=== PATIENT | female | born 1985 | race Caucasian/White ===

== ENCOUNTER 2023-12-13 10:04 | Outpatient (REF) | payer MEDICAID, SELFPAY ==
--- NOTE | ~2023-12-13 | XR_ITS ---
EXAMINATION: XR LUMBOSACRAL SPINE WITH OBLIQUES CLINICAL INFORMATION: Lumbar spondylosis. COMPARISON: None available. TECHNIQUE: AP, both oblique, and lateral views of the lumbar spine. Lateral view of the lumbosacral junction. FINDINGS: Mild to moderate disc space narrowing at L4-L5. Disc degenerative change involving the lower thoracic spine. The vertebral bodies and posterior elements appear unremarkable. Vertebral alignment appears unremarkable.. The paraspinal soft tissues appear unremarkable. XR/XR lumbar spine 4V min IMPRESSION: Disc degenerative change.
[2023-12-13 13:59] LABS: Thyroid Stimulating Hormone 41.48 uIU/mL (0.32-4.0)
== END 2023-12-13 10:05 | disposition home or self-care (01) ==
LOC: HO.XRAY 10:04
PROVIDERS: Visit Provider Registered Nurse Emergency
DX: M47.816 Spondylosis without myelopathy or radiculopathy, lumbar region (principal); E03.9 Hypothyroidism, unspecified
CPT/HCPCS: 36415; 72110; 84443; 99212

== ENCOUNTER 2023-12-13 10:04 | Outpatient (AMB) | payer MEDICAID, SELFPAY ==
[2023-12-13 10:31] VITALS: BP 140/86; PULSE 73; RESP 18; O2SAT 96; BMI 44.5
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
== END 2023-12-13 11:09 | disposition home or self-care (01) ==
PROVIDERS: Visit Provider Registered Nurse Emergency
DX: M47.816 Spondylosis without myelopathy or radiculopathy, lumbar region (principal)
CPT/HCPCS: 99204

== ENCOUNTER 2024-01-21 10:03 | Outpatient (RCR) | payer MEDICAID, SELFPAY | END 2024-02-26 15:51 | disposition home or self-care (01) | LOC: HO.WCC 10:03 | PROVIDERS: Visit Provider Physician Assistant | DX: Z09 Encounter for follow-up examination after completed treatment for conditions other than malignant neoplasm (principal) | CPT/HCPCS: 99212 ==

== ENCOUNTER 2024-02-05 09:10 | Outpatient (AMB) | payer MEDICAID, SELFPAY ==
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
[2024-02-05 09:30] VITALS: BP 135/90; PULSE 77; BMI 45.2
== END 2024-02-05 10:08 | disposition home or self-care (01) ==
PROVIDERS: Referring Provider Surgery; Visit Provider Surgery
DX: K43.9 Ventral hernia without obstruction or gangrene (principal); E66.01 Morbid (severe) obesity due to excess calories
CPT/HCPCS: 99204

== ENCOUNTER → 2024-02-05 09:10 | Outpatient (BNVA) | payer MEDICAID, SELFPAY | PROVIDERS: Referring Provider Surgery; Visit Provider Surgery | DX: K43.9 Ventral hernia without obstruction or gangrene (principal); E66.01 Morbid (severe) obesity due to excess calories; Z68.42 Body mass index [BMI] 45.0-49.9, adult | CPT/HCPCS: 99202 ==

== ENCOUNTER 2024-02-18 06:09 | Outpatient (REF) | payer MEDICAID, SELFPAY ==
--- NOTE | ~2024-02-18 | FL_ITS ---
EXAMINATION: XR FLUOROSCOPY WITH IMAGES CLINICAL INFORMATION: Spondylosis without myelopathy. COMPARISON: None available. TECHNIQUE: Fluoroscopy Supervised By: Dr. Sylvain Lin. Fluoroscopy Time: 0.5 minutes. Cumulative Dose: 10.2 mGy. DAP: 0.178 Gycm2. Images: 8. FINDINGS: Intraoperative fluoroscopy and spot films were performed during a procedure in the OR. [place] are seen at 3 consecutive levels in the lumbar spine on the left likely L4-S1 with a single needle placed at S1 on the right. Contrast media is seen around the needle tips likely epidural. Please correlate with Dr. Sylvain Lin's report for complete details. FL/FL guidance in treatment room IMPRESSION: Intraoperative fluoroscopy and spot films were obtained. Please see Dr. Sylvain Lin's report for complete details.
== END 2024-02-18 06:10 | disposition home or self-care (01) ==
LOC: HO.LAB 06:09
PROVIDERS: PCP Family Medicine; Visit Provider Anesthesiology
DX: M47.816 Spondylosis without myelopathy or radiculopathy, lumbar region (principal); E03.9 Hypothyroidism, unspecified
CPT/HCPCS: 36415; 64493; 64494; 84443; J2795; Q9967

== ENCOUNTER 2024-02-18 09:30 | Outpatient (AMB) | payer MEDICAID, SELFPAY ==
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
[2024-02-18 10:03] VITALS: BP 128/72; PULSE 83; RESP 20; O2SAT 98; BMI 45.2
[2024-02-18 10:07] VITALS: BP 130/70; PULSE 96; RESP 18; O2SAT 96
== END 2024-02-18 10:43 | disposition home or self-care (01) ==
LOC: HO.PMCPRC 09:30
PROVIDERS: PCP Family Medicine; Referring Provider Family Medicine; Visit Provider Anesthesiology
DX: M47.816 Spondylosis without myelopathy or radiculopathy, lumbar region (principal)
CPT/HCPCS: 64493; 64494

== ENCOUNTER 2024-02-21 08:56 | Outpatient (REF) | payer MEDICAID, SELFPAY ==
--- NOTE | ~2024-02-21 | CT_ITS ---
EXAMINATION: CT ABDOMEN AND PELVIS WITHOUT CONTRAST CLINICAL INFORMATION: Ventral hernia without obstruction or gangrene. COMPARISON: None available. TECHNIQUE: Multidetector volumetric imaging was performed from the superior aspect of the liver through the pubic symphysis. Sagittal and coronal reformatted images were obtained on the technologist's workstation. This CT examination was performed using dose optimization techniques as appropriate, variously including the following: *Automated exposure control *Adjustment of mA and/or kV according to patient size (this includes techniques or standardized protocols for targeted exams where dose is matched to indication/reason for exam; i.e. extremities or head) *Use of iterative reconstruction technique DLP: 820 mGy-cm. FINDINGS: LUNG BASES: The visualized lung bases are unremarkable. No pleural or pericardial effusion. LIVER, GALLBLADDER, AND BILIARY TREE: The liver is normal in size, shape, and attenuation. No focal hepatic lesion or biliary ductal dilatation is present. The gallbladder is unremarkable with no evidence of radiopaque gallstones, gallbladder wall thickening, or obvious pericholecystic inflammatory changes. PANCREAS: Unremarkable. No abnormal mass or peripancreatic inflammatory change. SPLEEN: Unremarkable. ADRENAL GLANDS: Unremarkable. KIDNEYS AND URETERS: The kidneys are normal in size, shape, and attenuation. No hydronephrosis or hydroureter. There is a 2 mm nonobstructing calculus seen in the lower pole of the right kidney. No perinephric stranding. BLADDER: Unremarkable. GASTROINTESTINAL TRACT: No free air or free fluid. No dilated loops of large or small bowel. There is a small hiatal hernia seen. No pericolonic inflammatory change. The appendix appears unremarkable. There is a fat halo sign seen involving the cecum and terminal ileum; however, this is likely related to obesity rather than chronic Crohn's disease. ABDOMINAL WALL: There is a supraumbilical midline hernia present with defect of 2 cm in width. This is seen to contain fat with no abnormal fluid collection. LYMPH NODES: No lymphadenopathy appreciated. VASCULAR: Unremarkable. PELVIC VISCERA: Unremarkable. OSSEOUS STRUCTURES: No suspicious destructive bony lesions. There is S1 spina bifida occulta. CT/CT abdomen pelvis wo IV con IMPRESSION: Supraumbilical fat-containing anterior midline abdominal wall hernia. Right nephrolithiasis without evidence of obstructive uropathy. Fat halo sign seen within the cecum and terminal ileum, most likely related to obesity if patient has not had history of Crohn's disease. Fleischner guidelines were followed.
== END 2024-02-21 08:57 | disposition home or self-care (01) ==
LOC: HO.CT 08:56
PROVIDERS: PCP Family Medicine; Visit Provider Surgery
DX: K43.9 Ventral hernia without obstruction or gangrene (principal)
CPT/HCPCS: 74176

== ENCOUNTER 2024-03-17 09:44 | Day surgery (SDC) | payer MEDICAID, SELFPAY ==
[2024-03-17] VITALS (10 sets, daily range): BP systolic 97–128; BP diastolic 53–87; PULSE 77–95; RESP 16–18; TEMP 36.6; O2SAT 95–97; BMI 45.0
--- NOTE | 2024-03-17 10:56 | MHC.SHP ---
Pre-Procedural Eval Section A - 24 Hr Update-Section A only Date of Service: 03/17/24 Section B - Complete if H&P > 30 days Chief Complaint: Ventral hernia without obstruction or gangrene Details of Present Illness: Has hernia on the epigastric area with discomfort; CT confirms small hernia Relevant Family History (Specify if Yes): No Relevant Social History: None Present Medications: see Short Stay Collaborative assessment Medical History: Significant History (Morbidly obese, chronic back pain) Allergies: Allergies Allergy/AdvReac Type Severity Reaction Status Date / Time Seasonal Allergies Allergy Severe Unknown Verified 03/17/24 10:26 Review of Systems Sugical H&P ROS: Negative: Constitution, Cardiovascular, Respiratory, Neurological, Psychiatric, Hem-Onc, Allergic/Immunologic, Gastrointestinal, Genitourinary, Musculoskeletal, Integumentary, Endocrine and Eyes/Ears/Nose/Throat Exam Surgical H&P Exam: Normal: HEENT, Normal: Heart, Normal: Lungs, Normal: Extremities, Normal: Skin and Normal: Neurological and Significant Findings: Abdomen (Vague protuberant area in the epigastric area with Valsalva) Plan Diagnosis/Plan: Unchanged I have reviewed the history and physical and performed a pertinent physical examination on my patient. No changes have occurred unless specified. Time Spent With Patient Time: Total time managing care of this patient today ____ minutes.
[2024-03-17] MEDS: Lactated Ringers 1,000 ML 100 ML IVCONT (11:12)
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
--- NOTE | 2024-03-17 12:58 | P.OP_ITS ---
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 This was seen small defect on the fascia on CT scan. She understood the technique of repair with mesh and she was aware of the risks, benefits, and alternatives She was brought to the operating room and placed supine under general anesthesia via endotracheal tube. The abdomen was prepped and draped in usual sterile fashion. A surgical time-out was done. The patient received cefazolin 2 g IV preoperatively I infiltrated my planned line of incision. I made the incision on the skin overlying this palpable hernia using blade 15. And this was carried down through the full-thickness of the skin and thick subcutaneous fat until was able to visualize the hernia. The hernia consisted of large amounts of omentum. I did sharp dissection to separate the rest of the hernia contents from the thick subcutaneous layer down to the fascia. I did sharp dissection adhesions from the fascial edge to the hernia until was able to clearly define this. There was a large amount of herniated omentum which could not be reduced through the small defect. I therefore do partial appendectomy by serially ligating the omentum with Polysorb 2-0 ties and transecting this above the ties. We were then able to reduce the hernia completely. The fascial defect measured about 1.5 cm. I chose a small-sized Ventralex mesh. This was positioned under the fascia and flattened. I secured the mesh with Prolene 2 sutures to the fascial edge using both straps. I then closed the fascial defect with a [id number] Maxon 1 stitch The subcutaneous layer was reapposed with Polysorb 3-0 sutures. Skin closure was achieved with Polysorb 4-0 subcuticular running stitch The area was infiltrated with Marcaine 0.5% for postop analgesia. Dressings were applied. The procedure was completed The patient tolerated procedure well. There were no immediate complications. Initial and final counts of sponges and instruments were correct. Estimated blood loss was about 50 cc The patient was extubated without difficulty and transferred to the recovery room with stable vital signs
[2024-03-17] MEDS: Albuterol Sulfate (0.083%) 2.5 MG/3 ML VIAL.NEB INHALE (13:16)
[2024-03-17] MEDS: oxyCODONE HCl Immed Release 5 MG TABLET PO (13:22)
[2024-03-17] MEDS: fentaNYL citrate/PF 100 MCG/2 ML VIAL 50 MCG IVPUSH (13:38)
== END 2024-03-17 15:04 | disposition home or self-care (01) ==
PROVIDERS: PCP Family Medicine; Visit Provider Surgery
PROC: (CPT 49592; principal; 2024-03-17 11:30)
DX: K43.6 Other and unspecified ventral hernia with obstruction, without gangrene (principal); K66.0 Peritoneal adhesions (postprocedural) (postinfection); N83.209 Unspecified ovarian cyst, unspecified side; N75.0 Cyst of Bartholin's gland; G93.2 Benign intracranial hypertension; J45.909 Unspecified asthma, uncomplicated; E03.9 Hypothyroidism, unspecified; E66.01 Morbid (severe) obesity due to excess calories; Z68.42 Body mass index [BMI] 45.0-49.9, adult; M79.7 Fibromyalgia; M47.816 Spondylosis without myelopathy or radiculopathy, lumbar region; F41.0 Panic disorder [episodic paroxysmal anxiety]; F43.0 Acute stress reaction; Z79.899 Other long term (current) drug therapy; Z59.00 Homelessness unspecified; Z91.419 Personal history of unspecified adult abuse; F17.200 Nicotine dependence, unspecified, uncomplicated
CPT/HCPCS: 49592; 88304; C1781; J0665; J0690; J1100; J1885; J2250; J2405; J2704; J3010

== ENCOUNTER → 2024-03-17 09:44 | Outpatient (BNV) | payer MEDICAID, SELFPAY | PROVIDERS: PCP Family Medicine; Visit Provider Surgery | DX: K43.6 Other and unspecified ventral hernia with obstruction, without gangrene (principal) | CPT/HCPCS: 49592 ==

== ENCOUNTER 2024-03-30 10:59 | Outpatient (AMB) | payer MEDICAID, SELFPAY ==
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
== END 2024-03-30 11:38 | disposition home or self-care (01) ==
PROVIDERS: Visit Provider Surgery
DX: K43.9 Ventral hernia without obstruction or gangrene (principal)
CPT/HCPCS: 99212

== ENCOUNTER → 2024-03-30 10:59 | Outpatient (BNVA) | payer MEDICAID, SELFPAY | PROVIDERS: Visit Provider Surgery | DX: K43.9 Ventral hernia without obstruction or gangrene (principal) | CPT/HCPCS: 99212 ==

== ENCOUNTER 2024-04-29 16:17 | Outpatient (AMB) | payer MEDICAID, SELFPAY ==
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
[2024-04-29 14:15] VITALS: BMI 42.6
== END 2024-04-29 16:45 | disposition home or self-care (01) ==
LOC: HO.HBS 16:17
PROVIDERS: PCP Family Medicine; Visit Provider Physician Assistant Surgical
DX: E66.01 Morbid (severe) obesity due to excess calories (principal); Z68.41 Body mass index [BMI] 40.0-44.9, adult
CPT/HCPCS: 99205

== ENCOUNTER → 2024-04-29 16:17 | Outpatient (BNVA) | payer MEDICAID, SELFPAY | PROVIDERS: PCP Family Medicine; Visit Provider Physician Assistant Surgical | DX: E66.01 Morbid (severe) obesity due to excess calories (principal); D64.9 Anemia, unspecified; E03.9 Hypothyroidism, unspecified; Z71.3 Dietary counseling and surveillance; Z68.41 Body mass index [BMI] 40.0-44.9, adult | CPT/HCPCS: 99205 ==

== ENCOUNTER 2024-05-07 08:45 | Outpatient (REF) | payer MEDICAID, SELFPAY ==
--- NOTE | ~2024-05-07 | US_ITS ---
EXAMINATION: US COMPLETE ABDOMEN WITH LIVER ELASTOGRAPHY CLINICAL INFORMATION: Morbid obesity. COMPARISON: CT abdomen and pelvis 02/21/2024 TECHNIQUE: Real-time imaging of the abdominal viscera. Noninvasive ultrasound liver fibrosis assessment is performed using Alexa ElastPQ point quantification shear wave elastography (pSWE) with a C5-2 MHz transducer. Multiple elastography samples are obtained. FINDINGS: PANCREAS: Normal. The visualized pancreatic head and body are normal in appearance. The remainder of the pancreas is obscured from visualization by the overlying bowel gas. ABDOMINAL AORTA: The proximal, middle, and distal aortic segments are normal in caliber. INFERIOR VENA CAVA: Visualized portions are normal. LIVER: The liver is enlarged with increased echogenicity consistent with hepatic steatosis. At the time of the CT scan, the liver was 20 cm in greatest length and attenuation was normal. No focal lesion or intrahepatic biliary duct dilatation. The right lobe measures 18.8 cm in length. The left lobe measures 13.2 cm in length. Portal flow is towards the liver (hepatopetal). Shear wave liver elastography median stiffness is 1.06 m/s (reference: normal median stiffness is 1.3 m/s or less). IQR/median stiffness to assess sampling precision is 0.08 (reference: good quality data set is IQR/median stiffness of 0.15 or less). GALLBLADDER: Normal. The gallbladder is physiologically distended without evidence of stones, sludge, polyps, wall thickening or pericholecystic fluid. COMMON BILE DUCT: Normal in caliber measuring 0.3 cm in diameter. RIGHT KIDNEY: Normal. No hydronephrosis. No renal calculi or focal parenchymal lesions. The kidney measures 10.9 cm in maximum dimension. LEFT KIDNEY: Normal. No hydronephrosis. No renal calculi or focal parenchymal lesions. The kidney measures 11.2 cm in maximum dimension. SPLEEN: Normal. The spleen measures 11.1 cm in maximum dimension. FREE FLUID: None. US/US abdomen comp w elastography IMPRESSION: 1. Enlarged fatty liver. 2. Liver elastography: Measurements are consistent with a high probability of normal liver stiffness. REFERENCE: Society of Radiologists in Ultrasound Liver Stiffness Thresholds (2020): LIVER STIFFNESS THRESHOLDS: *Liver Stiffness equal or less than 1.3 m/s: High probability of being normal. *Liver Stiffness less than 1.7 m/s: In the absence of other known clinical signs, rules out compensated advanced chronic liver disease. *Liver Stiffness 1.7-2.1 m/s: Suggestive of compensated advanced chronic liver disease but need further test for confirmation. *Liver Stiffness over 2.1 m/s: Rules in compensated advanced chronic liver disease. *Liver Stiffness over 2.4 m/s: Suggestive of clinically significant portal hypertension. QUALITY OF DATA SET: *IQR/Median value equal or less than 0.15 implies a quality data set. *IQR/Median value over 0.15 implies a poor quality data set. SIGNIFICANT CHANGE FROM PRIOR EXAM: Significant change if liver stiffness measurement is 10% or greater from prior exam. OTHER CONSIDERATIONS: The stage of liver fibrosis may be overestimated in the setting of acute hepatitis, liver inflammation, elevated liver function tests, hepatic vascular congestion, obstructive cholestasis, non-fasting state, and infiltrative diseases such as amyloidosis and lymphoma. In some patients with NAFLD, the liver stiffness thresholds for compensated advanced chronic liver disease may be lower. In causes other than viral hepatitis and NAFLD, liver stiffness thresholds are not well established. Electronically signed by: Erick Alvarado MD 05/11/2024 09:55 PM EDT
--- NOTE | ~2024-05-07 | XR_ITS ---
EXAMINATION: XR CHEST CLINICAL INFORMATION: Morbid severe obesity due to excess calories COMPARISON: None available. TECHNIQUE: 2 views of the chest were obtained. FINDINGS: Mild anterior loss of height of the lower thoracic vertebral body on the etiology. Mild degenerative changes in the lower thoracic spine. There is no gross pneumothorax. Heart size is normal. No pleural effusion. No focal consolidation. XR/XR chest 2V IMPRESSION: 1. No evidence of pneumonia. 2. Mild anterior loss of height of the lower thoracic vertebral body on the etiology. Electronically signed by: Hailey Jarrell MD 05/27/2024 09:46 AM EDT
[2024-05-07 09:09] LABS: MANUAL DIFF FLAG NO
--- NOTE | 2024-05-07 10:00 | ECG_ITS ---
Test Reason : MORBID OBESITY Blood Pressure : / mmHG Vent. Rate : 082 BPM Atrial Rate : 082 BPM P-R Int : 144 ms QRS Dur : 082 ms QT Int : 398 ms P-R-T Axes : 055 -24 -16 degrees QTc Int : 464 ms Normal sinus rhythm Nonspecific ST and T wave abnormality Abnormal ECG No previous ECGs available Referred By: Raheel Al Electronically Signed By:JUAN CORRAL
[2024-05-07 10:10] LABS: Basophils Absolute Auto 0.1 X10*3/uL (0.0-0.2); Basophils Percent Auto 0.9 % (0-2); Eosinophils Absolute Auto 0.2 X10*3/uL (0.0-0.4); Eosinophils Percent Auto 2.6 % (0-4); Hematocrit 37.4 % (37.0-47.0); Hemoglobin 12.3 g/dl (12.0-16.0); Imm Gran Abs Auto 0.03 X10*3/uL (0.00-0.03); Imm Gran Pct Auto 0.4 % (0.0-0.4); Lymphocytes Absolute Auto 2.1 X10*3/uL (1.2-4.9); Lymphocytes Percent Auto 26.8 % (20-40); Mean Corpuscular HGB Conc 32.9 g/dl (31.0-35.0); Mean Corpuscular Volume 88.2 fL (80.0-98.0); Mean Platelet Volume 9.9 fL (9.4-12.3); Monocytes Absolute Auto 0.5 X10*3/uL (0.1-1.2); NRBC Pct Auto 0.4 /100WBC (0.0-0.2); Neutrophils Absolute Auto 4.8 x10*3/uL (2.0-8.3); Neutrophils Percent Auto 62.3 % (45-73); Platelet Count 352 X10*3/uL (160-400); Red Blood Count 4.24 X10*6/uL (4.20-5.50); Red Cell Distribution Width 12.5 % (11.0-16.0); White Blood Count 7.7 X10*3/uL (4.8-10.8)
[2024-05-07 10:51] LABS: Estimated Average Glucose 97 mg/dL
[2024-05-07 10:58] LABS: Alanine Aminotransferase 16 U/L (0-31); Albumin Level 4.2 g/dL (3.5-5.0); Alkaline Phosphatase 89 U/L (39-117); Anion Gap 11 (12-20); Aspartate Amino Transferase 16 U/L (5-31); Bilirubin Total 0.5 mg/dL (0.0-1.0); Blood Urea Nitrogen 13 mg/dL (9-16); C Reactive Protein 0.77 mg/dL (< or = 0.50); Calcium 9.4 mg/dL (8.4-10.2); Carbon Dioxide 27 mmol/L (22-29); Chloride 105 mmol/L (96-108); Cholesterol 256 mg/dL (<200); Estimated Glomerular Filt Rate > 60; Glucose Random 94 mg/dL (60-115); HDL Cholesterol 44 mg/dL (>40); Iron 59 mcg/dL (30-160); LDL Cholesterol Calculated 174 mg/dL (<100); Percent Iron Saturation 17 % (15-50); Potassium 4.3 mmol/L (3.3-5.1); Sodium 139 mmol/L (135-145); Total Iron Binding Capacity 354 mcg/dL (228-428); Total Protein 7.1 g/dL (6.5-8.0); Triglycerides 190 mg/dL (<150); Unsaturated Iron Binding 295 ug/dL
[2024-05-07 11:13] LABS: Ferritin 9 ng/mL (10-122); TSH reflex Free T4 44.99 uIU/mL (0.32-4.0); Vitamin D 25-OH Total 26.2 ng/mL (>30)
[2024-05-07 11:16] LABS: Folate 7.6 ng/mL (> or = 4.0); Vitamin B12 351 pg/mL (200-900)
[2024-05-07 12:09] LABS: Free T4 (Free Thyroxine) 0.52 ng/dL (0.71-1.85); Insulin 12 uU/mL (2-29)
[2024-05-11 09:33] LABS: Zinc 55 mcg/dL (60-130)
[2024-05-12 16:23] LABS: Vitamin B1 8 nmol/L (8-30)
[2024-05-13 02:43] LABS: Vitamin A 38 mcg/dL (38-98)
== END 2024-05-07 08:46 | disposition home or self-care (01) ==
LOC: HO.US 08:45
PROVIDERS: PCP Family Medicine; Visit Provider Physician Assistant Surgical
DX: E66.01 Morbid (severe) obesity due to excess calories (principal); E03.9 Hypothyroidism, unspecified; D64.9 Anemia, unspecified
CPT/HCPCS: 36415; 71046; 76700; 76981; 80053; 80061; 82306; 82607; 82728; 82746; 83036; 83525; 83540; 84425; 84439; 84443; 84590; 84630; 85025; 86140; 93005

== ENCOUNTER → 2024-05-14 09:24 | Outpatient (AMB) | payer MEDICAID, OTHER, SELFPAY ==
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
== END ==
PROVIDERS: PCP Family Medicine; Visit Provider Counselor Mental Health
DX: F43.20 Adjustment disorder, unspecified (principal)
CPT/HCPCS: 90837

== ENCOUNTER → 2024-05-14 09:24 | Outpatient (BNVA) | payer MEDICAID, SELFPAY | PROVIDERS: PCP Family Medicine; Visit Provider Counselor Mental Health ==

== ENCOUNTER → 2024-05-28 09:22 | Outpatient (AMB) | payer OTHER, SELFPAY ==
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
== END ==
PROVIDERS: PCP Family Medicine; Visit Provider Counselor Mental Health
DX: F43.23 Adjustment disorder with mixed anxiety and depressed mood (principal)
CPT/HCPCS: 90837

== ENCOUNTER → 2024-05-28 09:22 | Outpatient (BNVA) | payer MEDICAID, SELFPAY | PROVIDERS: PCP Family Medicine; Visit Provider Counselor Mental Health ==

== ENCOUNTER 2024-05-29 07:47 | Outpatient (AMB) | payer MEDICAID, SELFPAY ==
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
[2024-05-29 09:42] VITALS: BMI 42.8
== END 2024-05-29 09:51 | disposition home or self-care (01) ==
LOC: HO.HBS 07:47
PROVIDERS: PCP Family Medicine; Referring Provider Family Medicine; Visit Provider Surgery
DX: E66.01 Morbid (severe) obesity due to excess calories (principal); Z68.41 Body mass index [BMI] 40.0-44.9, adult
CPT/HCPCS: 99215

== ENCOUNTER → 2024-05-29 07:47 | Outpatient (BNVA) | payer MEDICAID, SELFPAY | PROVIDERS: PCP Family Medicine; Visit Provider Surgery ==

== ENCOUNTER 2024-06-11 09:11 | Outpatient (AMB) | payer OTHER, SELFPAY ==
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
== END 2024-06-11 10:00 | disposition home or self-care (01) ==
LOC: HO.HBST 09:11
PROVIDERS: PCP Family Medicine; Visit Provider Counselor Mental Health
DX: F43.20 Adjustment disorder, unspecified (principal)
CPT/HCPCS: 90837

== ENCOUNTER → 2024-06-11 09:11 | Outpatient (BNVA) | payer MEDICAID, SELFPAY | PROVIDERS: PCP Family Medicine; Visit Provider Counselor Mental Health ==

== ENCOUNTER 2024-06-29 13:56 | Outpatient (AMB) | payer MEDICAID, SELFPAY ==
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
[2024-06-29 09:11] VITALS: BMI 42.3
== END 2024-06-29 14:03 | disposition home or self-care (01) ==
LOC: HO.HBS 13:56
PROVIDERS: PCP Family Medicine; Visit Provider Physician Assistant Surgical
DX: E66.01 Morbid (severe) obesity due to excess calories (principal)
CPT/HCPCS: 99213

== ENCOUNTER → 2024-06-29 13:56 | Outpatient (BNVA) | payer MEDICAID, SELFPAY | PROVIDERS: PCP Family Medicine; Visit Provider Physician Assistant Surgical | DX: E66.01 Morbid (severe) obesity due to excess calories (principal) ==

== ENCOUNTER 2025-04-08 08:07 | Outpatient (REF) | payer MEDICAID, SELFPAY ==
--- NOTE | ~2025-04-08 | US_ITS ---
EXAMINATION: US THYROID HISTORY: HYPOTHYROIDISM, ENLARGED THYROID NONTOXIC GOITER TECHNIQUE: Real-time grayscale ultrasound imaging was performed and images were reviewed. COMPARISON: There are no prior studies available for comparison. FINDINGS: SIZE: The right thyroid lobe measures 4.4 x 1.5 x 1.3 cm. The left thyroid lobe measures 3.9 x 1.4 x 1.4 cm. The isthmus measures 4 mm. FLOW: Flow to the gland is increased. ECHOGENICITY: The echotexture of the gland is heterogeneous. NODULES: No discrete nodules are identified. US/US thyroid IMPRESSION: Heterogeneous hypervascular thyroid gland without discrete nodules. ACR TI-RADS Guidelines TR1 (0 points): Benign. No follow-up or biopsy required TR2 (2 points): Not Suspicious. No biopsy or follow up indicated TR3 (3 points): Mildly Suspicious. FNA if >= 2.5 cm, Follow if >= 1.5 cm TR4 (4-6 points): Moderately Suspicious. FNA if >= 1.5 cm, Follow if >= 1.0 cm TR5 (>=7 points): Highly Suspicious. FNA if >= 1.0 cm, Follow if >= 0.5 cm Electronically signed by: Renan Krause MD 04/08/2025 08:40 AM EDT
--- OUTSIDE RECORDS SUMMARY | 2025-04-08 08:13 | XMS_ITS | Clinical Summary ---
Author Organization [facility] Address [address] [place] [address] Care Team Providers Care Tool Drawing Checker Name Role Phone Unavailable Primary Care Provider Unavailabl e Social History Tobacco Use Types Packs/Day Years Used Date Smoking Tobacco: Never Assessed Comments Unknown Sex and Gender Information Value Date Recorded Sex Assigned at Female 09/10/2024 1:49 PM EST Legal Sex Female 1:47 PM EST Gender Identity Female 09/10/2024 1:49 PM EST Sexual Orientation Straight 09/10/2024 1: 49 PM EST Plan of Treatment Health Maintenance Due Date Last Done Comments Depression Screening 1987 HIV Screening 1987 Lipid Panel 1987 SDOH Screening 1987 Disability Screening 1987 Alcohol/Substance Use Screening 1999 Tobacco Screening 1999 Family Planning (PISQ) 2002 Hepatitis C Screening 2005 Pneumococcal Vaccine: Pediatrics (0 to 5 Years) and At-Risk Patients (6 to 49) Years (1 of 2 - PCV) 2006 Pap Smear 01/03/2008 Cervical Cancer Screening 2017 HPV/Cotest 2017 DTaP/Tdap/Td Vaccines (8 - Td or Tdap) 03/03/2024 03/03/2014, 11/14/2010, 06/11/2008, Additional history exists COVID-19 Vaccine ( - season) 2024 Influenza Vaccine (#1) 2025 2, 07/03/2011, 06/11/2008, Additional history exists Zoster Vaccines (1 of 2) 2037 RSV Patients and Patients Aged 60 years or older (1 - 1-dose 75+ series) 2062 HIB Vaccines Completed 10/10/1988 IPV Vaccines Completed 03/28/1992, 11/07, 1987, Additional history exists Hepatitis B Vaccines Completed 12/20/1999, 06/19/1999, 01/18/1999 HPV Vaccines Completed 06/11/2008, 01/2007, 01/22/2007 Meningococcal Vaccine Aged Out 06/11/2008 No elder concha eligible based on patient's age to complete this topic Hepatitis A Vaccines Aged Out No long er eligible based on patient's age to complete this topic Meningococcal B Vaccine Aged Out No l onger eligible based on patient's age to complete this topic RSV under 20 months Aged Out No longe r eligible based on patient's age to complete this topic Rotavirus Vaccines Aged Out No longer eligible based on patient's age to complete this topic Insurance [facility] STANDARD
--- OUTSIDE RECORDS SUMMARY | 2025-04-08 08:14 | XMS_ITS | Clinical Summary ---
Author Organization [facility] Address [address] [place] [id number] Phone Care Team Providers Care Physician Industrial Name Role Phone [place], Laura Craig MD Primary Care Provider + Allergies No known active allergies Medications albuterol sulfate (PROAIR RESPICLICK) 90 mcg/actuation AePB PROAIR RESPICLICK 108 (90 Base) MCG/ACT AEPB 6 Active budesonide-form oterol (SYMBICORT) 80-4.5 mcg/actuation inhaler Inhale into the lungs. 0 Active drospirenone-et hinyl estradioL (RACHANA, 28,) 3-0.02 mg per tablet Take by mouth. 0 Active cyclobenzaprine (FLEXERIL) 5 MG tablet 1 TABLET ORALLY EVERY NIGHT NEEDED 30 DAYS 1 Active acetaZOLAMIDE (DIAMOX) 250 MG tablet Take 250 mg by mouth daily. 1 Active busPIRone (BUSPAR) 5 MG tablet Take 5 mg by mouth 2 (two) times a day. 1 Active fluocinolone 0.01 % cream APPLY TO FACE AT BEDTIME FOR 2 to 3 MONTHS 1 Active hydroquinone 4 % cream APPLY TO FACE AT BEDTIME FOR 2 to 3 MONTHS 1 Active meloxicam (MOBIC) 7.5 MG tablet TAKE 1 to 2 TABS DAILY NEEDED FOR PAIN *TAKE WITH FOOD 1 Active tretinoin (RETIN-A) 0.1 % cream APPLY SMALL AMOUNT TO FACE AT BEDTIME FOR 2 to 3 MONTHS 1 Active levothyroxine (SYNTHROID, LEVOTHROID) 100 MCG tablet TAKE 1 TAB BY MOUTH DAILY IN THE MORNING, ON AN EMPTY STOMACH AT LEAST 30 MINUTES BEFORE BREAKFAST Active Active Problems Problem Noted Date Diagnosed Date Hypothyroidism 06/13/2021 Assessment & Plan (06/13/2021 12:24 PM EDT): Dx with hypothyroidism after her 2nd child was born 11/2010. Had positive TPO and anti-TG in 2012. She has been on and off LT4. She reports she was off LT4 for years until it was recently restarted. PCP restarted LT4 25mcg daily, but increased it to 100mcg daily about 2 months ago per pt. She reports compliance with LT4 Continue LT4 100mcg daily Check TFTs today Pituitary adenoma 06/13/2021 Overview (06/15/2021): MRI 04/2021 at [facility] Did not mention any pituitary abnormalities Assessment & Plan (06/13/2021 12:21 PM EDT): Previously seen by Dr. Goode. Records reviewed. Dx with pituitary adenoma at age of 17 during evaluation. Prolactin was elevated. Had a few MRIs. Tried a medication for a short term to lower prolactin level, but she could not tolerate it due to anxiety. She does not recall the name of the medication she tried. Last MRI was normal in 2010 at [facility]. Did not have problem to conceive. Denies ring size change. She reports she had a recent MRI for headaches at [facility] - we will obtain results Check prolactin today Social History Tobacco Use Types Packs/Day Years Used Date Smoking Tobacco: Every Day Smokeless Tobacco: Never Education Answer Date Recorded Are you interested in more education? Not on bharat e 01/04/2023 Are you concerned about learning? Not on file 01/04/2023 No 01/04/2023 No 01/04/2023 Digital Access Answer Date Recorded No 02/04/2023 No 02/04/2023 No 02/04/2023 Reliable internet access at home? Not on file 02/04/2023 Device with a working camera? Not on file Comments Unknown Sex and Gender Information Value Date Recorded Sex Assigned at Not on file Legal Sex Female 12:53 PM EST Gender Identity Not on file Sexual Orientation Not on file Last Filed Vital Signs Vital Sign Reading Time Taken Comments Blood Pressure 94/67 06/13/2021 11:29 AM EDT Pulse 80 06/13/2021 11:29 AM EDT Temperature - - Respiratory Rate - - Oxygen Saturation - - Inhaled Oxygen Concentration - - Weight 95.7 kg (211 lb) 06/13/2021 11:29 AM EDT Height 160 cm (5' 3 ) 11/04/2015 10:36 AM EST Body Mass Index 37.38 11/04/2015 10:36 AM EST Plan of Treatment Health Maintenance Due Date Last Done Comments DEPRESSION SCREENING 1999 SMOKING Hx and SMOKELESS TOBACCO SCREENING 01/03/2000 HEPATITIS C SCREENING 2005 HIV ONE-TIME SCREENING (18-65 YEARS) 2005 PNEUMOCOCCAL VACCINES (0-49 years) (1 of 2 - PCV) 2006 PAP SMEAR 04/16/2019 04/16/2016, 02/18/2012 TSH LEVEL 06/13/2022 06/13/2021 Adult Td,Tdap Booster 03/03/2024 03/03/2014 , 11/14/2010, 06/11/2008, Additional history exists COVID-19 VACCINE ( season) 2024 HIB VACCINES Completed 10/10/1988 MENINGOCOCCAL VACCINES (ACWY) Aged Out 06/11/2008 No longer eligible based on patient's age to complete this topic HEPATITIS A VACCINES Aged Out No long er eligible based on patient's age to complete this topic MENINGOCOCCAL VACCINES (B) Aged Out N o longer eligible based on patient's age to complete this topic Medical Devices Not on file Procedures Procedure Name Priority Date/Time Associated Diagnosis Comments TSH Routine 06/13/2021 11:57 AM EDT Hypothyroidism, unspecified type Pituitary adenoma from Last 3 Months or Most Recently Relevant to Health Maintenance Results * TSH (06/13/2021 11:57 AM EDT) TSH 4.57 0.51 - 6.27 uIU/mL [facility], [facility] Comment: Euthyroid range 0.51-6.270 muIU/mL. Values above 6.270 muIU/mL suggust hypothyroid states. Values between 0.01-0.51 muIU/mL may be on a thyroidal or non thyroidal basis and require further evaluation. Values above 6.270 muIU/mL suggust hypothyroid states. Blood 06/13/2021 11:5 7 AM EDT 06/13/2021 12:02 PM EDT Miguelina Zhou MD LAB BLOOD ORDERABL ES Final Result [facility], [address] [address], [facility] from Last 3 Months or Most Recently Relevant to Health Maintenance Insurance [facility] [employer] [employer] [employer] [facility] [employer] Member Subscriber Plan / Payer (Ef fective 2017-Present) Name:Vicki Barillas Relation to Subscriber:Self Name:Vicki Barillas Payer ID:[id number] (NAIC) Group ID:Not on file Type:Medicaid Address: [employer] CLAIMS [address] REYNA PACE MD [facility] [employer] Member Subscriber Plan / Payer (Ef fective 2017-Present) Name:Vicki Barillas Relation to Subscriber:Self Name:Vicki Barillas Payer ID:[id number] (NAIC) Group ID:Not on file Type:Medicaid Address: [employer] CLAIMS [address] REYNA PACE MD [facility] [employer] [facility] [employer] [facility] [employer] FAMILY [employer]CO [facility] [employer] Care Teams Physician Industrial Relationship Specialty Start Date End Date [place], Laura Craig MD [address] [place] [id number] PCP - General Family Medicine 01/23/21 Additional Source Comments The information contained in this document represents components of the legal health record. It is not the complete legal health record.[facility]
== END 2025-04-08 08:08 | disposition home or self-care (01) ==
LOC: HO.US 08:07
PROVIDERS: PCP Family Medicine; Visit Provider Family Medicine
DX: E04.9 Nontoxic goiter, unspecified (principal)
CPT/HCPCS: 76536

== ENCOUNTER → 2025-04-08 08:10 | Outpatient (BNV) | payer MEDICAID, SELFPAY | PROVIDERS: PCP Family Medicine; Visit Provider Radiology Diagnostic Radiology | DX: E04.0 Nontoxic diffuse goiter (principal) | CPT/HCPCS: 76536 ==

== ENCOUNTER 2025-08-10 13:49 | Outpatient (REF) | payer MEDICAID, SELFPAY | END 2025-08-10 13:50 | disposition home or self-care (01) | LOC: HO.LNP 13:49 | PROVIDERS: PCP Family Medicine; Visit Provider Student in an Organized Health Care Education/Training Program | DX: L03.031 Cellulitis of right toe (principal); M60.271 Foreign body granuloma of soft tissue, not elsewhere classified, right ankle and foot | CPT/HCPCS: 11730; 17250; 88305; 88312; 99202; J0665; J2003 ==

== ENCOUNTER 2025-08-10 13:49 | Outpatient (AMB) | payer MEDICAID, SELFPAY ==
[2025-08-10 13:57] VITALS: BMI 34.7
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
--- OUTSIDE RECORDS SUMMARY | 2025-08-10 15:52 | XMS_ITS | Clinical Summary ---
Author Organization [employer] Address [address] [place] [address] Care Team Providers Care Pipelines Manager Name Role Phone Unavailable Primary Care Provider [...] history exists COVID-19 Vaccine ( - season) 2025 Influenza Vaccine (#1) 2025 2, 07/03/2011, 06/11/2008, [...] patient's age to complete this topic Insurance [facility] STANDARD
--- OUTSIDE RECORDS SUMMARY | 2025-08-10 15:52 | XMS_ITS | Clinical Summary ---
Author Organization [facility] Address [address] [place] [phone] Phone Care Team Providers Care Recovery Operator Helper Name Role Phone [place], Laura Craig MD Primary Care Provider + [...] adenoma 06/13/2021 Overview (06/15/2021): MRI 04/2021 at [facility] Did not mention any pituitary abnormalities [...] Last MRI was normal in 2010 at [facility]. Did not have problem to conceive. Denies ring size change. She reports she had a recent MRI for headaches at [facility] - we will obtain results Check [...] 03/03/2014 , 11/14/2010, 06/11/2008, Additional history exists INFLUENZA VACCINE (#1) 2025 2, 08/05/2012, 07/03/2011, Additional history exists COVID-19 VACCINE ( - season) 2025 HIB VACCINES Completed 10/10/1988 MENINGOCOCCAL VACCINES (ACWY) [...] Procedure Name Priority Date/Time Associated Diagnosis Comments THYROID STIMULATING HORMONE (TSH) Routine 06/13/2021 11:57 AM EDT Hypothyroidism, unspecified type Pituitary adenoma from Last 3 Months or Most Recently Relevant to Health Maintenance Results * TSH (06/13/2021 11:57 AM EDT) TSH 4.57 0.51 - 6.27 uIU/mL [facility] Comment: Euthyroid range 0.51-6.270 muIU/mL. Values above 6.270 muIU/mL suggust hypothyroid states. Values between 0.01-0.51 muIU/mL may be on a thyroidal or non thyroidal basis and require further evaluation. Values above 6.270 muIU/mL suggust hypothyroid states. Blood 06/13/2021 11:5 7 AM EDT 06/13/2021 12:02 PM EDT Miguelina Zhou MD LAB BLOOD BKR YADIRA GUADARRAMA Final Result [address] [address], [facility] from Last 3 Months or Most Recently Relevant to Health Maintenance Insurance [employer] [place] [id number] [employer] Care Teams Recovery Operator Helper Relationship Specialty Start Date End Date [place], Laura Craig MD [address] [place] [id number] PCP - General Family Medicine 01/23/21 Additional Source Comments The information contained in this document represents components of the legal health record. It is not the complete legal health record.[facility]
== END 2025-08-10 14:48 | disposition home or self-care (01) ==
LOC: HO.HPODS 13:50
PROVIDERS: PCP Family Medicine; Visit Provider Student in an Organized Health Care Education/Training Program
DX: L03.031 Cellulitis of right toe (principal); M60.271 Foreign body granuloma of soft tissue, not elsewhere classified, right ankle and foot
CPT/HCPCS: 11730; 17250; 99203

== ENCOUNTER 2025-08-13 09:40 | Outpatient (REF) | payer MEDICAID, SELFPAY ==
[2025-08-13 13:18] LABS: MANUAL DIFF FLAG NO
[2025-08-13 13:32] LABS: Hematocrit 38.1 % (37.0-47.0); Hemoglobin 12.4 g/dl (12.0-16.0); Imm Gran Abs Auto 0.02 X10*3/uL (0.00-0.03); Imm Gran Pct Auto 0.2 % (0.0-0.4); Lymphocytes Absolute Auto 2.2 X10*3/uL (1.2-4.9); Mean Corpuscular HGB Conc 32.5 g/dl (31.0-35.0); Mean Corpuscular Hemoglobin 29.4 pg (27.0-33.0); Mean Corpuscular Volume 90.3 fL (80.0-98.0); NRBC Abs Auto 0.000 X10*3/uL (0.0-0.012); NRBC Pct Auto 0.0 /100WBC (0.0-0.2); Platelet Count 404 X10*3/uL (160-400); Red Blood Count 4.22 X10*6/uL (4.20-5.50); White Blood Count 8.7 X10*3/uL (4.8-10.8)
[2025-08-13 17:18] LABS: Anion Gap 11 (12-20); Blood Urea Nitrogen 15 mg/dL (9-16); Calcium 8.7 mg/dL (8.4-10.2); Carbon Dioxide 24 mmol/L (22-29); Chloride 111 mmol/L (96-108); Estimated Glomerular Filt Rate > 60; Potassium 4.6 mmol/L (3.3-5.1); Sodium 141 mmol/L (135-145)
== END 2025-08-13 09:41 | disposition home or self-care (01) ==
LOC: HO.HKASLDS 09:40
PROVIDERS: PCP Family Medicine; Visit Provider Student in an Organized Health Care Education/Training Program
DX: L97.512 Non-pressure chronic ulcer of other part of right foot with fat layer exposed (principal); L03.031 Cellulitis of right toe; M60.271 Foreign body granuloma of soft tissue, not elsewhere classified, right ankle and foot; L03.115 Cellulitis of right lower limb; Z01.812 Encounter for preprocedural laboratory examination
CPT/HCPCS: 36415; 80048; 83036; 85025; 99212

== ENCOUNTER 2025-08-13 09:40 | Outpatient (AMB) | payer MEDICAID, SELFPAY ==
[2025-08-13 09:52] VITALS: BMI 34.7
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
== END 2025-08-13 10:56 | disposition home or self-care (01) ==
LOC: HO.HPODS 09:41
PROVIDERS: PCP Family Medicine; Visit Provider Student in an Organized Health Care Education/Training Program
DX: L97.512 Non-pressure chronic ulcer of other part of right foot with fat layer exposed (principal); L03.031 Cellulitis of right toe; M60.271 Foreign body granuloma of soft tissue, not elsewhere classified, right ankle and foot; L03.115 Cellulitis of right lower limb
CPT/HCPCS: 99213

== ENCOUNTER 2025-08-13 10:53 | Outpatient (REF) | payer MEDICAID, SELFPAY ==
--- OUTSIDE RECORDS SUMMARY | 2025-08-13 13:26 | XMS_ITS | Clinical Summary ---
Author Organization [facility] Address [address] [address] Phone Care Team Providers Care Anesthesiology Resident Name Role Phone [place], Laura Craig MD Primary Care Provider + [...] adenoma 06/13/2021 Overview (06/15/2021): MRI 04/2021 at [facility] Did not mention any pituitary abnormalities Assessment [...] Last MRI was normal in 2010 at [facility]. Did not have problem to conceive. Denies ring size change. She reports she had a recent MRI for headaches at [facility] - we will obtain results Check prolactin [...] LAB BLOOD BKR YADIRA GUADARRAMA Final Result [address] [address], [facility] from Last 3 Months or Most Recently Relevant to Health Maintenance Insurance [employer] [id number] [employer]CO [employer]CO [employer]HP [employer]CO MGBHP [employer]ILY [employer]CO MGBHP [employer]CO MGBHP [employer] FAMILY ACO MGP [employer] Care Teams Anesthesiology Resident Relationship Specialty Start Date End Date [place], Laura Craig MD [address] [place] [id number] PCP - General Family Medicine 01/23/21 Additional Source Comments The information contained in this document represents components of the legal health record. It is not the complete legal health record.[facility]
--- OUTSIDE RECORDS SUMMARY | 2025-08-13 13:26 | XMS_ITS | Clinical Summary ---
Author Organization [employer] Address [address] [facility] 7 [place] [address] Care Team Providers Care Warehouse Shipping Supervisor Name Role Phone Unavailable Primary Care Provider [...] patient's age to complete this topic Insurance [facility] STANDARD
== END 2025-08-13 10:54 | disposition home or self-care (01) ==
LOC: HO.LAB 10:53
PROVIDERS: Visit Provider Student in an Organized Health Care Education/Training Program
DX: L03.115 Cellulitis of right lower limb (principal)
CPT/HCPCS: 87070; 87205

== ENCOUNTER 2025-08-17 15:14 | Outpatient (AMB) | payer MEDICAID, SELFPAY ==
[2025-08-17 15:16] VITALS: BMI 34.7
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
--- OUTSIDE RECORDS SUMMARY | 2025-08-17 21:37 | XMS_ITS | Continuity of Care Document ---
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 Available Not Available Not Available Gavilax 17 gram/dose oral powder MIX 17 GRAMS IN 8 OUNCES WATER/JU ICE AND DRINK 2X DAILY NEEDED FOR CONSTIPA TION active Not Available Not Available No t Available Vitamin 1+1 27 mg iron-1 mg tablet 1 tab daily while breast feeding 12/03 completed [id number] Not Available Not Available Not Available Aerochamb er Mini Please dispense any covered spacer to use with inhalers 2018 active Not Available Not Available Not Avai lable Sterile Saline 0.9 % nasal spray aerosol two sprays each nostril bid 12/03 completed None Not Available Not Available Not Available Gavilax 17 gram oral powder packet one daily 09/07 completed None Not Available Not Available Not Available Vitron-C 65 mg iron-125 mg tablet,de layed release TAKE 1 TAB ORALLY DAILY SWALLOW WHOLE DO NOT CHEW/GEETA [place]/DISSO LVE/OPEN active Not Available Not Available No t Available -V RX 29 mg iron-1 mg tablet one daily 12/03 completed None Not Available Not Available Not Available Kylee (28) 3 mg-0.02 mg tablet TAKE 1 TABLET BY MOUTH EVERY DAY 08/14 completed Not Available Not Available Not Available Lactobaci llus acidophil us 100 mg (1 billion cell) capsule one daily 03/16 completed None Not Available Not Available Not Available riboflavi n (vitamin B2) 400 mg tablet TAKE 1 TABLET BY MOUTH EVERY DAY FOR 30 DAYS active Not Available Not Available No t Available Proctosol HC 2.5 % topical cream perineal applicato r bid to rectum prn 2019 active Not Available Not Available Not Avai lable Simpesse 0.15 mg-30 mcg (84)/10 mcg(7) tablets,3 month dose pack TAKE 1 TABLET BY MOUTH EVERY DAY 08/14 completed Not Available Not Available Not Available Slynd 4 mg (28) tablet TAKE 1 TABLET BY MOUTH EVERY DAY 11/06 completed Not Available Not Available Not Available magnesium 100 mg (as glycinate ) capsule Take 1 capsule every day by oral route. 08/14 completed Not Available Not Available Not Available Zepbound 10 mg/0.5 mL subcutane ous pen injector Inject 0.5 mL every week by subcutan eous route for 28 days, for weight loss. 2024 active Not Available Not Available Not Avai lable Zepbound 5 mg/0.5 mL subcutane ous pen injector Inject 0.5 mL every week by subcutan eous route for 28 days, for weight loss. 2023 active Not Available Not Available Not Avai lable Zepbound 2.5 mg/0.5 mL subcutane ous pen injector Inject 0.5 mL every week by subcutan eous route for 28 days, for weight loss. 09/09 completed dose incr. Not Available Not Available Not Available Zepbound 15 mg/0.5 mL subcutane ous pen injector INJECT 0.5 ML EVERY WEEK BY SUBCUTAN EOUS ROUTE FOR 28 DAYS, FOR WEIGHT LOSS. active Not Available Not Available No t Available Zepbound 12.5 mg/0.5 mL subcutane ous pen injector Inject 0.5 mL every week by subcutan eous route for 28 days, for weight loss. 2024 active Not Available Not Available Not Avai lable Zepbound 7.5 mg/0.5 mL subcutane ous pen injector Inject 0.5 mL every week by subcutan eous route for 28 days, for weight loss. 2023 active Not Available Not Available Not Avai lable Vitals None Recorded Social History Question Answer Notes LastModified by Organizat ion Details LastModified Time Tobacco Smoking Status Never Smoker Cammie Villela [place] [address] [place] [address], [phone], [facility] 05/31/2021 17:02:27 Is Your Home Air Conditioned? Yes [email or web address] Information not available 05/31/2021 Do You Wear A Helmet When Biking? No [email or web address] Information not available 05/31/2021 What Is Your Level Of Caffeine Consumption? None [email or web address] Information not available 05/31/2021 What Type Of Diet Are You Following? REGULAR [email or web address] Information not available 05/31/2021 Which Illicit Or Recreational Drugs Have You Used? Marijuana Information not available 06/29/2021 What Is The Highest Grade Or Level Of School You Have Completed Or The Highest Degree You Have Received? [id number] [email or web address] Information not available 05/31/2021 Are There Any Guns Present In Your Home? No [email or web address] Information not available 05/31/2021 Where Do You Live? Apartment [email or web address] Information not available 05/31/2021 Domestic Violence Current Informa tion not available 06/29/2021 Who Do You Have Sex With? Male Information not available 06/29/2021 How Long Have You Lived There? 3 Years Information not available 05/31/2021 What Was The Date Of Your Most Recent Tobacco Screening? 04/21/2021 [email or web address] Information not available 04/07/2022 How Many Children Do You Have? 4 [email or web address] Information not available 05/31/2021 Do You Have Any Pets? No [email or web address] Information not available 05/31/2021 What Is Your Relationship Status? Single [email or web address] Information not available 05/31/2021 Do You Use Your Seat Belt Or Car Seat Routinely? Yes [email or web address] Information not available 05/31/2021 Are You Sexually Active? No [email or web address] Information not available 05/31/2021 Are There Any Smokers In Your House? No [email or web address] Information not available 05/31/2021 How Much Tobacco Do You Smoke? 0.25 PPD Information not available 06/29/2021 Do You Participate In Social Media? Yes Information not available 05/31/2021 Sex: Female Functional Status Question Answer Note LastModified by Organizat ion Details LastModified Time Do you use any illicit or recreational drugs? No Information not available 05/31/2021 What is your level of alcohol consumption? Occasional Information not available 05/31/2021 Are you currently employed? No [email or web address] Information not available 05/31/2021 What is your occupation? [email or web address] Information not available 06/29/2021 What is your exercise level? Moderate Information not available 05/31/2021 Mental Status Question Answer Note LastModified by Organization D etails LastModified Time Do you feel stressed (tense, restless, nervous, or anxious, or unable to sleep at night)? [id number] [email or web address] Information not available 05/31/2021 Family History Relationship Description Onset Age of this Age Resolved Age Notes LastModified by Organization Details LastModified Time Mother Family history of Depression [email or web address] Not available 05/05/2021 06:52:03 Mother Family history of alcoholism [email or web address] 4 Not available 05/05/2021 06:52:03 Unspecified Relation Family history of asthma Other Family Member [email or web address] 4 Not available 05/05/2021 06:52:03 Father Family history of Hypercholest erolemia [email or web address] 4 Not available 05/05/2021 06:52:03 Father Family history of coronary arterioscler osis [email or web address] 4 Not available 05/05/2021 06:52:03 Medical History No medical history recorded. Gynecological HistoryNo gynecological history recorded. Obstetrics History GPAL:G 5 P 3 0 1 3 Type Value Multiple Births 0 Full Term 3 Induced 0 Spontaneous 1 Premature 0 Living 3 Ectopics 0 Total 5 Immunizations Vaccine Type Date Status Note Provider Nam e and Address Organization Details Recorded Time influenza, unspecified formulation 1 completed Laura Mccarty MD [address] [place] [address], [phone], [facility] 08/07/2021 09:03:18 Tdap 1 completed Not Available [facility] 05/06/2021 01:54:54 influenza, unspecified formulation 2 completed Laura Mccarty MD [address] [place] [address] [place], [phone], [facility] 08/07/2021 09:03:18 Tdap 4 completed Not Available [facility] 05/06/2021 01:54:54 DTaP 2 completed Laura Mccarty MD [address] [place] [address], [phone], [facility] 08/07/2021 09:03:17 OPV, trivalent 7 completed Laura Mccarty MD [address] [place] [address], [phone], [facility] 08/07/2021 09:03:17 Influenza, split virus, trivalent, preservative 4 completed Laura Mccarty MD [address] [place] [address], [phone], [facility] 08/07/2021 09:03:17 meningococcal MCV4P 8 completed Laura Mccarty MD [address] [place] [address], [phone], [facility] 08/07/2021 09:03:17 Influenza, split virus, trivalent, preservative 1 completed Laura Mccarty MD [address] [place] [address], [phone], [facility] 08/07/2021 09:03:17 DTaP 7 completed Laura Mccarty MD [address] [place] [address], [phone], [facility] 08/07/2021 09:03:17 DTaP 7 venkata Mccarty MD [address] [place] [address], [phone], [facility] 08/07/2021 09:03:17 HPV, quadrivalent 8 venkata Mccarty MD [address] [place], [place] [address], [address], [facility] 08/07/2021 09:03:18 Hep B, adolescent or pediatric 0 completed [place], [phone], [facility] 08/07/2021 09:03:18 Influenza, split virus, trivalent, preservative 5 completed Laura Mccarty MD [address] [place], [place] [address], [address], [facility] 08/07/2021 09:03:18 Td (adult), 2 Lf tetanus toxoid, preservative free, adsorbed 9 completed Laura Mccarty MD [address] [place], [place] [address], [address], [facility] 08/07/2021 09:03:18 Influenza, split virus, trivalent, preservative 8 completed Laura Mccarty MD [address] [place], [place] [address], [address], [facility] 08/07/2021 09:03:18 DTaP 0 completed Laura Mccarty MD [address] [place], [place] [address], [address], [facility] 08/07/2021 09:03:18 HPV, quadrivalent 7 completed Laura Mccarty MD [address] [place], [place] [address], [address], [facility] 08/07/2021 09:03:18 Hep B, adolescent or pediatric 9 venkata Mccarty MD [address] [place], [place] [address], [address], [facility] 08/07/2021 09:03:18 Influenza, split virus, trivalent, preservative 3 completed [place], [address], [facility] 08/07/2021 09:03:18 MMR 5 completed [place], [address], [facility] 08/07/2021 09:03:18 OPV, trivalent 0 completed Laura Mccarty MD [address] [place], [place] [address], [address], [facility] 08/07/2021 09:03:18 OPV, trivalent 7 venkata Mccarty MD [address] [place] [address], [phone], [facility] 08/07/2021 09:03:18 OPV, trivalent 2 completed Laura Mccarty MD [address] [place] [address], [phone], [facility] 08/07/2021 09:03:18 DTaP 7 venkata Mccarty MD [address] [place] [address], [phone], [facility] 08/07/2021 09:03:18 Influenza, split virus, trivalent, preservative 7 completed Laura Mccarty MD [address] [place] [address], [address], [facility] 08/07/2021 09:03:18 MMR 0 completed Laura Mccarty MD [address] [place] [address], [address], [facility] 08/07/2021 09:03:18 Tdap 8 venkata Mccarty MD [address] [place], [place] [address], [address], [facility] 08/07/2021 09:03:18 HPV, quadrivalent 7 completed [place], [address], [facility] 08/07/2021 09:03:18 varicella 8 completed Laura Mccarty MD [address] [place], [place] [address], [address], [facility] 08/07/2021 09:03:18 Hep B, adolescent or pediatric 9 completed Laura Mccarty MD [address] [place], [place] [address], [address], [facility] 08/07/2021 09:03:18 Hib (HbOC) 9 completed Laura Mccarty MD [address] [place] [address], [phone], [facility] 08/07/2021 09:03:18 Past Encounters Encounter ID Performer Location Encounter Start Date Encounter Closed Date Diagnosis/Indication Diagnosis SNOMED-CT Code Diagnosis ICD10 Code Diagnosis IMO Codes Diagnosis Note [id number] Nanette Mullins [facility] [address] [place] [address] 07/02/2025 15:33:55 07/02/2025 16:40:45 [id number] Millie Barkley MD [address] [address] 07/21/2025 07:49:43 07/21/2025 14:15:02 Ingrowing toenail [id number] L60.0 1001 subacute paronychia x2w, no drainage but +heat and warmth- lives in [place]- if not better and can't see podiatry or anythign worsening will go to urgent care next few days for eval for I&D- podiatry referral done Health Concerns Section Related Observation LastModified by Organization Detai ls LastModified Time None Recorded Concern Status LastModified by Organization Details LastModified Time None Recorded Payers Encounter Date Sequence Insurance Name Policy Number Policy Hernandez Covered Member ID Hernandez Member ID Guarantor Name 07/21/2025 1 MEDICAID-[facility] (MEDICAID) Vicki Barillas [id number] Vicki Barillas Notes Date Note Type Note Provider Name and Address Organization Details Recorded Time text/html [facility] [place] [address]. [phone]. [email or web address] for referral: ingrown toe nail (right foot) infection+ redness, warm to touchright foot, big toe >2 weeks of this Millie Barkley MD [address] [place] [address], [phone], [facility] 07/21/2025 14:10:02 OBGyn Episode No OBEpisode recorded.
--- OUTSIDE RECORDS SUMMARY | 2025-08-17 21:37 | XMS_ITS | Data Portability ---
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 [facility] 10:33:10 Tobacco dependen ce syndrome 80479196 Active 2016 [ 017] (F17.200 ) TOBACCO ABUSE Not Available [facility] 10:33:11 Exposure to organism Completed 201612/31/2018 [ 017] (Z20.7) Exposure to scabies Not Available [facility] 10:33:17 Procedur e carried out on subject 738552041 Completed 201801/02/2019 [] (Z13.220 ) Screenin g for lipid disorder Not Available [facility] 10:33:13 Hypothyr oidism 46142008 Active 2018 [ 019] (E03.9) Hypothyr oid Not Available [facility] 10:33:10 Keratosi s pilaris 2370630 Active 2018 [ 019] (Q82.8) Keratosi s pilaris Not Available [facility] 10:33:11 Menorrha hiren 819631082 Active 2018 [ 019] (N92.0) Menorrha hiren Not Available [facility] 10:33:12 Low back pain 208289418 Active 2018 [ 019] (M54.5) Low back pain Not Available [facility] 10:33:11 Obesity 189351636 Active 2018 [ 019] (E66.9) Obesity, BMI 30-34.9, adult Not Available [facility] 10:33:12 Segmenta l and somatic dysfunct ion 227026117 Active 2019 [ 020] (M99.09) Nonallop athic lesions of other sites, not elsewher e classifi ed Not Available [facility] 10:33:11 Cyst of ovary 03556651 Active 2019 [ 020] (N83.299 ) Other ovarian cyst, unspecif ied side Not Available [facility] 10:33:09 Dysmenor anderson 039309126 Active 2019 [ 020] (N94.6) Dysmenor anderson Not Available [facility] 10:33:11 Plantar fasciiti s 793874671 Active 2019 [ 020] (M72.2) Plantar fasciiti s, left Not Available [facility] 10:33:11 Premenst rual tension syndrome 50239796 Active 2019 [ 020] (N94.3) PMDD Not [facility] 10:[facility]:09 Gastriti s 2230611 Active 2019 [ 020] (K29.70) Gastriti s Not Available [facility] 10:33:09 Chloasma 45736035 Active 2020 [ 021] (L81.1) Melasma Not Available [facility] 10:33:12 Disorder of optic nerve 91841426 Active 2020 [ 021] (H47.091 ) Optic nerve disorder , right Not Available [facility] 11:53:10 Benign intracra nial hyperten kee 61247518 Active 2020 Laura Mccarty MD [address] [place], [address] , [facility] 1 17:14:27 Exposure to SARS-CoV -2 Active 2020 Francheska Dowling NP [address] [place], [address] , [facility] 1 11:35:30 Acute stress disorder 04688260 Active 2022 Laura Mccarty MD [address] [place], [address] , [facility] 3 12:32:04 Panic attack 809746022 Active 2022 Laura Mccarty MD [address] [place] [address], [address] , [facility] 3 12:32:42 Abdomina l pain 06734583 Active 2022 [ 014] (R10.9) Abdomina l pain Laura Mccatry MD [address] [place], [address] , [facility] 3 13:17:16 Hernia of anterior abdomina l wall 668988267 Active 2023 Laura Mccarty MD [address] [place] [address], [address] , [facility] 4 14:23:45 Morbid obesity 114660159 Active 2023 Laura Mccarty MD [address] [place] [address], [address] , [facility] 4 21:23:39 Uncompli cated mild persiste nt asthma 345519417 Active 2023 Laura Mccarty MD [address] [place] [address], [address] , [facility] 4 14:16:58 Mild intermit tent asthma 232999630 Active 2023 Laura Mccarty MD [address] [place] [address], [address] , [facility] 4 14:16:58 Bacteria l vaginosi s 843702574 Active 2023 [ 016] (N76.0) BACTERIA L VAGINOSI S Laura Mccarty MD [address] [place] [address], [address] , [facility] 4 22:45:24 Goiter 4965177 Active 2024 Laura Mccarty MD [address] [place] [address], [address] , [facility] 5 12:35:24 Melasma gravidar um 894900568 Active 2024 Laura Mccarty MD [address] [place] [address], [address] , [facility] 5 13:35:46 Ingrowin g toenail 704175467 Active 2024 Millie Barkley MD [address] [place] [address], [address] , [facility] 5 14:03:30 Notes:INITIAL ( TRI) LABS [...] Recorded Time 5 telehealth completed Jermaine Estevez [facility] 07/21/2025 09:18:14 5 telehealth completed Laura Mccarty MD [address] [place] [address], [address], [facility] 11/11/2024 10:16:11 4 telehealth completed Laura Mccarty MD [address] [place] [address], [address], [facility] 04/16/2024 13:27:33 4 telehealth completed Laura Mccarty MD [address] [facility] [place], [address], [facility] 02/17/2024 14:31:55 4 telehealth completed Laura Mccarty MD [address] [place], [address], [facility] 11/25/2023 14:00:59 4 telehealth completed Laura Mccarty MD [address] [place], [address], [facility] 09/30/2023 14:25:45 3 telehealth completed Laura Mccarty MD [address] [place], [address], [facility] 07/26/2023 12:23:19 3 telehealth - AUDIO only completed Sue Coleman CNM [address] [place], [address], [facility] 10/24/2022 10:12:16 2 telehealth - AUDIO only completed Laura Mccarty MD [address] [place], [address], [facility] 12/11/2021 08:54:44 2 telehealth - AUDIO only completed Laura Mccarty MD [address] [place], [address], [facility] 11/06/2021 10:55:10 2 telehealth - AUDIO only completed Laura Mccarty MD [address] [place], [address], [facility] 10/06/2021 10:26:32 Imaging Results None recorded. [...] y at bedtime x three 04/25 completed [id number] Not Available Not Available Not Available permethri [...] Vitamin tablet 1 tab QD 04/11 completed [id number] Not Available Not Available Not Available meloxicam [...] tab weekly x 2 months 12/16 completed 765839 Not Available Not Available Not Available etonogest [...] Use for ambulati on M54.3 08/14 completed [id number] Not Available Not Available Not Available Saline [...] before meals for symptom relief 08/23 completed 901261 Not Available Not Available Not Available topiramat e 50 mg tablet TAKE 1 TABLET BY MOUTH EVERY DAY 10/06 completed Not Available Not Available Not Available glycerin (adult) rectal supposito ry Insert 1 supposit ory rectally twice daily as needed 12/03 completed 540014 Not Available Not Available Not Available ferrous [...] PLEASE SEE ATTACHED FOR DETAILED DIRECTIO NS 12/06 /2024 completed Not Available Not Available Not Available [...] completed Not Available Not Available Not Available Se- 90 mg iron-1 mg tablet,ex tended release [...] tab daily while breast feeding 12/03 completed 321540 Not Available Not Available Not Available Aerochamb [...] Not Available Not Available No t Available Maria Del Carmen-V RX 29 mg iron-1 mg tablet one [...] Available Not Available Not Avai lable Vitals Date Recorded Body height Body mass index (BMI) Body weight Heart rate Body temperature Systolic And Diastolic Provider Name and Address Organization Details Last Updated DateTime 5 160.66 cm 34.3 kg/m2 74646.2 1 g 103 /min 97.6 [degF] 106/60 mm[Hg] Jane Gandhi MA [address] [place] [address], [address], [facility] 5 12:20:19 Date Recorded Body weight Heart rate Body temperature Oxygen saturation Body mass index (BMI) Body height Systolic And Diastolic Provider Name and Address Organization Details Last Updated DateTime 4 240481. 36 g 79 /min 97.9 [degF] 97 % 43.7 kg/m2 160.66 cm 113/79 mm[Hg] Felisha Concepcion MA [address] [place] [address], [address] , [facility] 4 10:25:47 Social History Question Answer Notes LastModified by Organizat ion Details LastModified Time Tobacco Smoking Status Never Smoker Cammie Villela MA [address] [place] [address], [address], [facility] 05/31/2021 17:02:27 Is Your Home Air Conditioned? Yes [email or web address] Information not available 05/31/2021 Do You Wear A Helmet When Biking? No [email or web address] Information not available 05/31/2021 What Is Your Level Of Caffeine Consumption? None [email or web address] Information not available 05/31/2021 What Type Of Diet Are You Following? REGULAR [email or web address] Information not available 05/31/2021 Which Illicit Or Recreational Drugs Have You Used? Marijuana Information not available 06/29/2021 What Is The Highest Grade Or Level Of School You Have Completed Or The Highest Degree You Have Received? [id number] Information not available 05/31/2021 Are There Any Guns Present In Your Home? No [email or web address] Information not available 05/31/2021 Where Do You Live? Apartment [email or web address] Information not available 05/31/2021 Domestic Violence Current Informa tion not available 06/29/2021 Who Do You Have Sex With? Male Information not available 06/29/2021 How Long Have You Lived There? 3 Years [email or web address] Information not available 05/31/2021 What Was The Date Of Your Most Recent Tobacco Screening? 04/21/2021 [email or web address] Information not available 04/07/2022 How Many Children Do You Have? 4 [email or web address] Information not available 05/31/2021 Do You Have Any Pets? No [email or web address] Information not available 05/31/2021 What Is Your Relationship Status? Single [email or web address] Information not available 05/31/2021 Do You Use Your Seat Belt Or Car Seat Routinely? Yes [email or web address] Information not available 05/31/2021 Are You Sexually Active? No [email or web address] Information not available 05/31/2021 Are There Any Smokers In Your House? No [email or web address] Information not available 05/31/2021 How Much Tobacco Do You Smoke? 0.25 PPD Information not available 06/29/2021 Do You Participate In Social Media? Yes [email or web address] Information not available 05/31/2021 Sex: Female Functional Status Question Answer Note LastModified by Organizat ion Details LastModified Time Do you use any illicit or recreational drugs? No [email or web address] Information not available 05/31/2021 What is your level of alcohol consumption? Occasional [email or web address] Information not available 05/31/2021 Are you currently employed? No [email or web address] Information not available 05/31/2021 What is your occupation? [employer] Information not available 06/29/2021 What is your exercise level? Moderate [email or web address] Information not available 05/31/2021 Mental Status Question Answer Note LastModified by Organization D etails LastModified Time Do you feel stressed (tense, restless, nervous, or anxious, or unable to sleep at night)? [id number] [email or web address] Information not available 05/31/2021 Family History Relationship [...] unspecified formulation 1 completed Laura Mccarty MD [address] [place] [address], [address], [facility] 08/07/2021 09:03:18 Tdap 1 completed Not Available [facility] 05/06/2021 01:54:54 influenza, unspecified formulation 2 completed Laura Mccarty MD [address] [place] [address], [address], [facility] 08/07/2021 09:03:18 Tdap 4 completed Not Available [facility] 05/06/2021 01:54:54 DTaP 2 completed Laura Mccarty MD [address] [place] [address], [address], [facility] 08/07/2021 09:03:17 OPV, trivalent 7 completed Laura Mccarty MD [address] [place] [address], [address], [facility] 08/07/2021 09:03:17 Influenza, split virus, trivalent, preservative 4 completed Laura Mccarty MD [address] [place], [place] [address] [place], [address], [facility] 08/07/2021 09:03:17 meningococcal MCV4P 8 venkata Mccarty MD [address] [place], [place] [address] [place], [address], [facility] 08/07/2021 09:03:17 Influenza, split virus, trivalent, preservative 1 completed Laura Mccarty MD [address] [place], [place] [address] [place], [address], [facility] 08/07/2021 09:03:17 DTaP 7 venkata Mccarty MD [address] [place], [place] [address] [place], [address], [facility] 08/07/2021 09:03:17 DTaP 7 venkata Mccarty MD [address] [place] [address], [address], [facility] 08/07/2021 09:03:17 HPV, quadrivalent 8 completed Laura Mccarty MD [address] [place], [place] [address] [place], [address], [facility] 08/07/2021 09:03:18 Hep B, adolescent or pediatric 0 venkata [place], [address], [facility] 08/07/2021 09:03:18 Influenza, split virus, trivalent, preservative 5 completed Laura [place], [address], [facility] 08/07/2021 09:03:18 Td (adult), 2 Lf tetanus toxoid, preservative free, adsorbed 9 completed [place], [address], [facility] 08/07/2021 09:03:18 Influenza, split virus, trivalent, preservative 8 completed Laura Mccarty MD [address] [place] [address], [address], [facility] 08/07/2021 09:03:18 DTaP 0 completed Laura Mccarty MD [address] [place] [address], [address], [facility] 08/07/2021 09:03:18 HPV, quadrivalent 7 completed Laura Mccarty MD [address] [place], [place] [address] [place], [address], [facility] 08/07/2021 09:03:18 Hep B, adolescent or pediatric 9 completed Laura Mccarty MD [address] [place] [address], [address], [facility] 08/07/2021 09:03:18 Influenza, split virus, trivalent, preservative 3 completed Laura Mccarty MD [address] [place] [address], [address], [facility] 08/07/2021 09:03:18 MMR 5 completed Laura Mccarty MD [address] [place] [address], [address], [facility] 08/07/2021 09:03:18 OPV, trivalent 0 completed Laura Mccarty MD [address] [place] [address], [address], [facility] 08/07/2021 09:03:18 OPV, trivalent 7 completed Laura Mccarty MD [address] [place], [place] [address], [address], [facility] 08/07/2021 09:03:18 OPV, trivalent 2 completed Laura Mccarty MD [address] [place], [place] [address], [address], [facility] 08/07/2021 09:03:18 DTaP 7 venkata Mccarty MD [address] [place], [place] [address], [address], [facility] 08/07/2021 09:03:18 Influenza, split virus, trivalent, preservative 7 completed Laura Mccarty MD [address] [place] [address], [address], [facility] 08/07/2021 09:03:18 MMR 0 completed Laura Mccarty MD [address] [place], [place] [address], [address], [facility] 08/07/2021 09:03:18 Tdap 8 completed Laura Mccarty MD [address] [place] [address], [address], [facility] 08/07/2021 09:03:18 HPV, quadrivalent 7 completed Laura Mccarty MD [address] [place] [address], [address], [facility] 08/07/2021 09:03:18 varicella 8 completed Laura Mccarty MD [address] [place] [address], [address], [facility] 08/07/2021 09:03:18 Hep B, adolescent or pediatric 9 completed Laura Mccarty MD [address] [place], [place] [address], [address], [facility] 08/07/2021 09:03:18 Hib (HbOC) 9 venkata Mccarty MD [address] [place], [place] [address], [address], [facility] 08/07/2021 09:03:18 Past Encounters Encounter ID Performer Location Encounter Start Date Encounter Closed Date Diagnosis/Indication Diagnosis SNOMED-CT Code Diagnosis ICD10 Code Diagnosis IMO Codes Diagnosis Note [id number] Laura Mccarty MD [address] [address] 05/31/2021 16:49:06 05/31/2021 18:22:40 Benign intracranial hypertension 37650107 G93.2 MRI and ophtho findings consistent with mild IIH. Headaches are not improved with topiramate however. Discussed that this likely warrants neurology reerral, but can trial acetazolam mitch in the meanwhile. Anxiety disorder F41.9 Not well controlled . Therapeuti c listening done today. Encouraged patient to give herself kodi and recognize that her children almost certainly are benefiting from her openness with them about how she feels. Will try to find a new outside therapist. Patient has trialed many SSRIs, SNRIs, and also lamotrigin e and topirimate without improvemen t in symptoms or with significan t adverse reactions. WIll place referral to psych to assist with diagnosis and medication management . IN the meantime, discussed a trial of buspirone. Also wrote letter for housing assistance to see if she can be moved up ont he waiting list given how her current housing situation is affecting her health. [id number] Laura cMcarty MD [facility] [address] [place] [address] 07/04/2021 09:30:41 07/04/2021 11:05:36 Anxiety disorder F41.9 Tolerating buspar, but hasn't noticed much of a difference yet, but has been under a lot of stress with her mother. Has not yet found time to call for therapists yet. Will increase buspar to 15mg daily. RTC 2m. Benign int racranial hypertension 29494032 G93.2 Headaches are improved with acetazolam mitch. Neuro referral not yet processed. WIll send a message to referrals to follow-up. Tobacco de pendence syndrome [id number] F17.200 Down to 3 a day. Sometimes will go on a vigorous walk or jumprope. Very motivated to quit and set a quit date today of September 09! Sciatica 60058016 M54.30 Completed PT and improved. Trying to keep up with HEP. Uses meloxicam oncec a day prn. Pain of breast 22670603 N64.4 Lef tbreast pain, no masses. Will refer to mammo with US prn. [id number] Francheska Dowling NP [facility] [address] [place] [address] 07/24/2021 10:19:21 07/24/2021 11:41:14 Exposure to SARS-CoV-2 752185281 Z20.822 asymptomat icreviewed cdc guidelines quarantine x 14 days, social distancing call if SOB, high fevers etc [id number] Laura Mccarty MD [facility] [address] [place] [address] 08/07/2021 08:54:20 08/07/2021 12:03:47 Benign intracranial hypertension 43031204 G93.2 Has neuro appt in november. Will check BMP now for bicarb levels. Cough 52171688 R05.9 May be related to quitting smoking, but unvaccinat ed with a covid exposure. Rapid covid negative and collected PCR. Lungs clear on exam. Anxiety disorder 06 F41.9 Not much of a difference yet. WIll be starting family therapy at [facility] soon. Therpeutic listening done today [id number] Laura Mccarty MD [address] [place] [address] 10/06/2021 07:54:59 10/06/2021 10:47:53 Premenstrual tension syndrome 77074691 N94.3 Would like to see if there is anything better for her PMDD. Already on the lower estrogen dose. Discussed that we could try drosperino ne alone which si approved for PMDD to see if the estrogen component makes a difference . Patient would liek to try this. Headache [id number] R51.9 Patient has actually stopped acetazolam imtch and HAs are improving so likely not truly pseudotumo r. Patient would liek to continue OCPs for PMDD symptoms (see above), which I think is reasonable given the low concern for pseudotumo r that was never really truyl consistent . Anxiety disorder F41.9 Not much of a difference yet. WIll be starting family therapy at [facility] soon. Therapeuti c listening done today [id number] Renata Coleman [facility] [address] [place] [address] 10/23/2021 13:52:09 10/23/2021 17:27:54 [id number] Laura Mccarty MD [address] [place] [address] 11/06/2021 08:05:55 11/06/2021 11:28:04 Anxiety disorder [id number] F41.9 Will increase Buspar to 2 tabs PO BID. Writing letter to show how her current housing situation is affecting her mental health. 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 This seems reasonable given how many medication classes she has tried and failed for her anxiety. DIscussed that I typically would not start a stimulant without a neuropsych consult, but that a trial of bupropion would be reasonable . Discussed that for some it may increase anxiety, so to continue buspar. Anxiety disorder F41.9 Slight improvemen t with Buspar increase. See above. 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 bicep tendonitis -no warmth, reduced ROM on abduction, +speed test [id number] Laura Mccarty MD [address] [place] [address] 07/02/2022 10:55:24 07/02/2022 12:12:05 Anxiety disorder 482252235 F41.9 Feels like the buspar at current dose is working well. Trying to manage stress and practice the coping skills that she has learned. Hypothyroidism 01562919 E03.9 Due for TSH Depressive disorder 3548 9007 F32.9 Z81.8 See anxiety and ADHD below. Attention deficit hyperactivity disorder, predominantly inattentive type [id number] F90.0 Feeling very good on bupropion and feels like this is the most stable she has been on a ynes regimen in a while. SHe is frustrated with difficulty with weight loss though and is open to trying a higher dose of bupropion. Homeless 08216067 Z59.00 Living with father and stepmom with her 3 sons, but family is selling the house this summer and she does not have back up housing. She has been ont wiaiting list for DTA housing for 4-5 years and the section 8 wait list for 9 years. Letter written to help case today. [id number] Tiffanie Amanda, WILY [facility] [address] [place] [address] 08/29/2022 15:24:15 08/29/2022 16:53:16 Upper respiratory infection 77690100 J06.9 Most likely viral in origin:Exp lained nature of condition and why not need for antibiotic - Symptoms may last up to two weeks- Supportive care including rest, plenty fluids, frequent hand washing,-n isaac saline, vaporizati on, humidifier - Return for high fevers, severe vomiting or if not improving [id number] Sue Coleman, MAUDE [facility] [address] [place] [address] 10/24/2022 08:04:22 10/24/2022 10:41:19 Contraception care management [id number] Z30.9 - Hx of PMDD- Reports prior to being on OCP her periods were very heavy- HX of BTL, on OCP to regulate menstrual cycle.- Pt reports the last few months she has been spotting constantly in between periods- Denies any new stressors or major life changes recently- New partner, would like G/C testing. Order placed.- Denies any vaginal symptoms- Discussed changing contracept ion method with patient. Reviewed risk and benefits of all. Pt would like to try seasonique which can also help with PMDD symptoms.- Pt will start new rx after period has finished.- RX sent Headache 65070740 R51.9 - x few years- Wears glasses and seen Opthamolog y in June 2022. wears glasses pressure was optic nerve which had subsided does not think it is contributi ng to headaches- Denies n/v, light disturbanc es, no hx of HTN. Last BP in clinic WNL.- Neurology referral placed [id number] Laura Mccarty MD [address] [place] [address] 12/27/2022 10:56:57 12/27/2022 11:54:50 Hypothyroidism 26914332 E03.9 Very poorly controlled with TSH 41 recently. Has only been out of meds for a couple of weeks, so suspect that she was uncontroll ed prior to that. Having symptoms currently. Will restart levoT at 100mcg as per her last dose. RTC in 6 weeks with rpt TSH. Abdominal pain 68231420 R10.9 Suspect an element of gastritis, but also concern for hernia on exam. Will do 1 month of omeprazole (already on famotidine with no relief). CHecking US for hernia. Depressive disorder 3548 9007 F32.9 Z81.8 Situationa l, but feels like meds are helping. Therapeuti c listening performed and gave support. SDSD screen positive for housing insecurity , but aptient is already establishe d with several community resources. [id number] Laura Mccarty MD [address] [place] [address] 02/07/2023 09:11:54 02/07/2023 10:05:53 Hypothyroidism 17356738 E03.9 Very poorly controlled with TSH 41 12/25/22.Re started levoT at 100mcg daily on 12/27Rpt TSH drawn today Abdominal pain 43476074 R10.9 Suspect an element of gastritis, but also concern for hernia on exam. Recent ED visit for rectal bleeding (see hemorrhoid below) and CT abd showed ileitis and was given flagyl. Will also check h. pylori. If all these are negative, consider referral to GI for possible scope and biopsies to rule out IBD. Vaginitis 20837872 N76.0 Rx for fluconazol e empiricall y for symptoms since being on antibiotic s. Headache 99659590 R51.9 Taking magnesium, will switch to glycinate formulatio n. Hemorrhoids 04541956 K64 .9 Bleeding most likely from known hemorrhoid [id number] Laura Mccarty MD [address] [address] 07/26/2023 11:22:30 07/26/2023 12:47:32 Acute stress disorder 14545536 F43.0 Has been under a significan t level of stress the past few months with housing insecurity , having to move her 3 kids to [place], [place] and then the sudden of her kid's father. Even though their relationsh ip was strained, obviously this has had a significan t impact on her anxiety and on her children. Anxiety, insomnia and panic attacks have worsened. Discussed that this would be a reasonable situation for a short course of benzodiaze pine for severe anxiety as amita adjust to her current regimen. Counseled on the risk of overdose and tolerance and counseled to keep in a safe place. Panic attack 219677237 F 41.0 See above Abdominal pain 95782021 R10.9 Acutely worsened with the stress reaction. Discussed relationsh ip between GI symptoms and anxiety symptoms. Refilling omeprazole . [id number] Laura Mccarty MD [address] [place] [address] 09/30/2023 07:42:06 09/30/2023 14:48:28 Acute stress disorder 63996519 F43.0 Has been under a significan t level of stress the past few months with housing insecurity , having to move her 3 kids to [place], [place] and then the sudden of her kid's father. Even though their relationsh ip was strained, obviously this has had a significan t impact on her anxiety and on her children. Anxiety, insomnia and panic attacks have worsened. Last visit was rx'd a short course of lorazepam, but patient reports only needing to take 4-5 tabs. Doing better now that housing is somewhat stable and she has found on support groups in her area. Low back pain 605889105 M54.50 History of intermitte nt lumbar pain, s/p PT several years ago, but pain is now occurring more frequently and worried about it interferin g as she re-enters the work-force . WIll place referral to Pain Management local to her and rx short course of muscle relaxant. Hypothyroidism 54698819 E03.9 Very poorly controlled with TSH 41 12/25/22.Re started levoT at 100mcg daily on 4/20Rpt TSH 15.9 on 03/14-> increase to 125mcg dailyBut most recent TSH 44 in August Ordering TSH to be done at [facility] Menorrhagia [id number] N9 2.0 Had been taking OCPs for a few months and periods were normal, but once she stopped periods were very heavy again. Hesitant for OCPs for weight gain concerns, not interested in IUD. Will try Nuvaring with continuous 3 month dosing. Hernia of anterior abdominal wall 786571557 K43.9 [id number] Laura Mccarty MD [facility] [address] [place] [address] 11/25/2023 07:53:58 11/25/2023 14:13:45 Low back pain 666582159 M54.50 History of intermitte nt lumbar pain, s/p PT several years ago, but pain is now occurring more frequently and worried about it interferin g as she re-enters the work-force . Referral placed to Pain Management local to her in September, not processed yet. Messaged referrals. Gave patient direct # to specialist s office to try to schedule. Hypothyroidism 74130681 E03.9 Very poorly controlled with TSH 41 12/25/22.Re started levoT at 100mcg daily on 20Rpt TSH 15.9 on 03/14-> increase to 125mcg dailyBut most recent TSH 44 in August Reminded patient to get the labs done [facility] Menorrhagia 201065370 N9 2.0 Had been taking OCPs for a few months and periods were normal, but once she stopped periods were very heavy again. Hesitant for OCPs for weight gain concerns, not interested in IUD.Starte d Nuvaring a little over a month ago and so far no spotting or bleeding with continuous dose. RTC via in another 3m to make sure her symptoms have resolved. Hernia of anterior abdominal wall 709962643 K43.9 Referred to gen surg in September, not yet processed. [id number] Laura Mccarty MD [address] [place] [address] 02/17/2024 09:31:16 02/17/2024 14:33:09 Low back pain 190626042 M54.50 History of intermitte nt lumbar pain, s/p PT several years ago, but pain is now occurring more frequently . Has been seen by pain management at [place] and planning for an injection/ procedure of some sort. Switched to methocarba mol and meloxicam (d/c cyclobenza maldonado) Hypothyroidism 17697300 E03.9 Very poorly controlled with TSH 41 12/25/22.Re started levoT at 100mcg daily on 12/27Rpt TSH 15.9 on 03/14-> increase to 125mcg dailyBut most recent TSH 44 in August and 41 in December, so increased to 150mcg dailyWill get updated TSH Menorrhagia 787860556 N9 2.0 Doing well with Nuvaring. Periods are now only 3 months, but last period was 10 days and still heavy. WIll continue Nuvaring. Hernia of anterior abdominal wall 008137352 K43.9 Saw surgeon, and per patient was told she does not have a hernia, but they are also planning for surgery and she isn't sure why. Will request records. Obesity 004076335 E66.8 Current weight 250 per patient at specialist [facility] t. BMI >40 and has continued to gain weight over the last several years. Would benefit from medical weight loss or surgical, but given that patient is currently in [place], I do not feel like I could fully support her remotely. Will refer to weight management in [place]. [id number] Laura Mccarty MD [facility] [address] [place] [address] 04/16/2024 07:51:44 04/16/2024 13:49:50 Low back pain 725363221 M54.50 History of intermitte nt lumbar pain, s/p PT several years ago, but pain is now occurring more frequently . Having a hard time standing for longer than 30 minutes, which is making it hard for her find work or do training programs. Improved with lying flat with legs elevated. Had an attempt at some sort of procedure with the pain clinic at [place], but couldn't tolerate the pain of the procedure and also had a bad experience with the doctor and does not want to go back. Pain does radiate to buttocks and leg. Meloxicam helps, taked methocraba mol rarely prn.-will start trial of gabapentin for radiculopa thy: start 100mg TID and uptitrate every 1-2 weeks as toelrated to 300mg TID Discussed that since this madison has been going on for mroe than a year and is preventing her from working, she would likely qualify for disability . Hypothyroidism 18807569 E03.9 Very poorly controlled with TSH 41 12/25/22.Re started levoT at 100mcg daily on 12/27Rpt TSH 15.9 on 03/14-> increase to 125mcg dailyBut most recent TSH 44 in August and 41 in December, so increased to 150mcg dailyWill get updated TSH, ordered in February, patient aware to go to lab Hernia of anterior abdominal wall 079554703 K43.9 s/p hernia repair and feeling better Obesity 966016376 E66.8 Current weight 250 per patient at specialist appointmen t. BMI >40 and has continued to gain weight over the last several years. Has appointmen t with surgeon later this month at [facility]. [id number] Laura Mccarty MD [facility] [address] [place] [address] 08/14/2024 10:16:21 08/14/2024 11:23:15 Adult health examination 568385228 Z00.00 39yo F here for CPE. Normal exam including BP.-PHQ-9: Negative-P ap: Done today-Mamm o: Not yet indicated- Colonoscop y: Not yet indicated- Vaccines: due for Tdap, flu, covid (declines all)-Contr aception: Nuvaring Counseled on eating a healthy, varied diet with fresh produce and 2 servings of fish a week. Encouraged to aim for 150 minutes a week of cardiovasc ular exercise. Counseled to aim for 7-8 hours of sleep a night and to drink 60+ ounces of water daily. Screening for disorder 756008638 Z13.84 [id number] Patient screened today for oral health - see results below. Low back pain 888329251 M54.50 Had an attempt at some sort of procedure with the pain clinic at [place], but couldn't tolerate the pain of the procedure and also had a bad experience with the doctor and does not want to go back. Pain radiates and has improved with gabapentin BID. Hypothyroidism 56847305 E03.9 Very poorly controlled with TSH 41 12/25/22.Re started levoT at 100mcg daily on 12/27Rpt TSH 15.9 on 03/14-> increase to 125mcg dailyBut most recent TSH 44 in August and 41 in December, so increased to 150mcg dailyOverd ue for follow-up TSH Morbid obesity 777447114 E66.01 98368 Reviewed patient's history with weight gain and previous weight loss attempts. Discussed that weight loss is dependent on lifestyle changes, but that we can use medication s and/or surgery to help adhere to lifestyle changes by addressing the hypothalam ic set-point and the biochemica l/hormonal signaling in the brain. Discussed how sleep, stress and exercise also impact the ability to lose weight. -Discussed various medication regimens and patient is a good candidate for Zepbound. -Ariadne puente counseled on making the following nutritiona l changes: eating unprocesse d, whoel foods, high protein and fiber -encourage d starting an exercise regimen and work towards a goal of 200-300m a week with 2-3 sessions of resistance training -will continue to discuss sleep and stress management at further visits Cancer cer vix screening status 766309806 Z12.4 826883 Venereal d isease screening 876179822 Z11.3 207357 Pt consented Uncomplica ricky mild persistent asthma 304575754 J45.30 Needs refill of symbicort Mild inter mittent asthma 050916834 J45.20 Feels like symbicort does not work as well for her as rescue and requesting refills of ventolin Abdominal pain 79241530 R10.9 Acutely worsened with the stress reaction. Discussed relationsh ip between GI symptoms and anxiety symptoms. Refilling omeprazole . [id number] Laura Mccarty MD [facility] [address] [place] [address] 11/11/2024 07:41:24 11/11/2024 10:25:09 Depressive disorder 33767811 F32.9 Z81.[address] and was started on Concerta. This plus benefits of weight loss has her feeling better than she has in a long time and she actually stopped bupropion! Morbid obesity 203795820 E66.01 47914 39yo F here for bariatric f/u visit.-Cur rent medication regimen: zepbound 7.5-Starti ng weight 248-> current weight 225 = __9% weight loss- 5: 225lb; managing side effects well and very happy with results so far; discussed ensuring adequate protein and will add Miralax for constipati on; encouraged regular exercise; continue to uptitrate dose and RTC prior to PA expiring in February Constipation 67796792 K5 9.00 [id number] Laura Mccarty MD [facility] [address] [place] [address] 01/29/2025 12:13:02 01/29/2025 13:17:53 Hypothyroidism 83547738 E03.9 Very poorly controlled with TSH 41 12/25/22.Re started levoT at 100mcg daily on 12/27Rpt TSH 15.9 on 03/14-> increase to 125mcg dailyBut most recent TSH 44 in August and 41 in December, so increased to 150mcg dailyOverd ue for follow-up TSH Morbid obesity 310029096 E66.01 86176 40yo F here for bariatric f/u visit.-Cur rent medication regimen: zepbound 7.5-Starti ng weight 248-> current weight 195 = 21% weight loss- 5: 225lb; managing side effects well and very happy with results so far; discussed ensuring adequate protein and will add Miralax for constipati on; encouraged regular exercise; continue to uptitrate dose and RTC prior to PA expiring in February-: 195lb, down 21%, will continue to uptitate to 15mg as she is overall tolerating it well and very happy with results; depression is significan tly improved Goiter 5792715 E04.9 240465 SLight asymmetry to left thyroid, will check US 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 Combo therapy for 6 months didn't really work, but may still be a benefit to continuing tretinoin. Advised vigilance around sun exposure. [id number] [facility] [address] [place] [address] 07/02/2025 15:33:55 07/02/2025 16:40:45 [id number] Millie Barkley MD [address] [address] 07/21/2025 07:49:43 07/21/2025 14:15:02 Ingrowing toenail 056905383 L60.0 1001 subacute paronychia x2w, no drainage but +heat and warmth- lives in [place]- if not better and can't see podiatry or anythign worsening will go to urgent care next few days for eval for I&D- podiatry referral done Health Concerns Section Related Observation LastModified by Organization Detai ls LastModified Time None Recorded Concern Status LastModified by Organization Details LastModified Time None Recorded Advance Directives Directive None Recorded Payers Insurance Date Sequence Insurance Name Policy Number Policy Hernandez Covered Member ID Hernandez Member ID Guarantor Name 07/02/2025 1 [facility] (MEDICAID REPLACEMENT) Vicki Eran [id number] Vicki Barillas 07/21/2025 1 [place] [facility] (MEDICAID) Vicki Barillas [id number] Vicki Barillas Notes Date Note Type Note Provider Name and Address Organization Details Recorded Time 4 text/html Annual WellnessReported by PatientSocial/Behaviora l HistoryFor diet and nutrition, patient reportshigh caloric intakeandhigh carbohydrate meals. For physical activity, patient reportsdoes not exercise on a regular basis. For fracture risk, patient reportsno recent explained fracture. For additional lifestyle factors, patient reportsno tobacco useandno alcohol intake.Mental Status:For depression risk, patient reportsloss of interest in activities,sleep disturbances or insomnia, andloss of energybut reportsnever feels sad, empty, or tearful,no significant changes in weight,no agitation,no feelings of worthlessness or guilt,no thoughts of suicide,no history of depression, andno history of mood disorders.Functional AbilityFor hearing, patient reportsno loss of hearing.Pt wears prescribed glassesROS as noted in the HPI Pt is here today for cpe Pt denies any concernsLmp- octbirth control- ring (continuous use) Laura Mccarty MD [address] [place], [address], [facility] 08/21/2024 14:18:35 5 text/html ROS as noted in the [facility] Bariatric Medicine follow-up visit:-Current medication regimen: Zepbound 7.5-Side effects: nausea and significant appetite suppression for 2 days after dose; constipation Exercise- has been trying to just be more active; has a stationary bike and trying to do 5 minutes a day Weight currently: 225lb Telehealth visit today . Patient informed they can see a clinician in-person as needed. Clinician's location: [facility]. Patient's location: Home. Laura Mccarty MD [address] [place] [address], [phone], [facility] 11/11/2024 10:16:26 5 text/html ROS as noted in the [facility] Bariatric Medicine follow-up visit:-Current medication regimen: zepbound 15-Side effects: nausea and heigthened sense of smell 24hr dietary recall:B- Yogurt drink with proteinL- noneD- turkey sometimes on breadS- goldfish, fruitsBeverages- water Exercise-walking Laura Mccarty MD [address] [place], [address], [facility] 01/29/2025 13:36:11 5 text/html Referral requesttype: PodiatristPodiatry Center - [facility] [place] [address]. [phone]. [email or web address] for referral: ingrown toe nail (right foot) infection+ redness, warm to touchright foot, big toe >2 weeks of this Millie Barkley MD [address] [place] [address], [phone], [facility] 07/21/2025 14:10:02 OBGyn Episode Ob Episode Information Episode Created Date Number of Fetuses Patient Bloodtype Patient rh Status Prepregnancy Weight lbs Domestic Partner Domestic Partner Phone Father Name Bead Builder Status 06/28/20 21 1 CLOSED Fetus Data First Name Last Name Admitted to NICU Weight (g) Sex Living Outcome Pediatric Complications Fetus ID Race Codes Race Delivery Type 3316.89 15 M Full Term [id number] Vaginal Delivery Ry Calculation Initial Ry Date Initial Exam Date Initial Exam Provider Initial Ultrasound Date Last Menstrual Period Date Ultra Sound Weeks Gestation 0 Eighteen To Twenty Week Ry Update Ultra Sound Date Fundal Height At Umbil Quickening Date Ultra Sound Latest Weeks Gestation Final Ry Confirmed By Final Ry Confirmed Date Final Ry Date Ultra Sound Latest Days Gestation 0 0 Menstrual History Last Menstrual Date Menses Monthly On Bcp Conception Prior Menses Frequency Hcg Plus Date Menarche Onset Age Delivery Information Delivery Date Delivery Type Labor Anesthesia Weeks Gestation Incision Type Labor Labor Length Hrs Delivered By Post Complications Tubal Sterilization Discharge Date Comments 3 EGA: Ful l termBirth weight: 3316.89gN chaz: AidenAddi tonal notes: severe anxiety during Discharge Information Feeding Method Contraceptive Method Maternal HG B and HCT Levels Ob Episode Information Episode Created Date Number of Fetuses Patient Bloodtype Patient rh Status Prepregnancy Weight lbs Domestic Partner Domestic Partner Phone Father Name Bead Builder Status 06/28/20 21 1 CLOSED Fetus Data First Name Last Name Admitted to NICU Weight (g) Sex Living Outcome Pediatric Complications Fetus ID Race Codes Race Delivery Type 3260.19 25 M Full Term [id number] Vaginal Delivery Ry Calculation Initial Ry Date Initial Exam Date Initial Exam Provider Initial Ultrasound Date Last Menstrual Period Date Ultra Sound Weeks Gestation 0 Eighteen To Twenty Week Ry Update Ultra Sound Date Fundal Height At Umbil Quickening Date Ultra Sound Latest Weeks Gestation Final Ry Confirmed By Final Ry Confirmed Date Final Ry Date Ultra Sound Latest Days Gestation 0 0 Menstrual History Last Menstrual Date Menses Monthly On Bcp Conception Prior Menses Frequency Hcg Plus Date Menarche Onset Age Delivery Information Delivery Date Delivery Type Labor Anesthesia Weeks Gestation Incision Type Labor Labor Length Hrs Delivered By Post Complications Tubal Sterilization Discharge Date Comments 5 EGA: Mac l termBirth weight: 3260.20gN chaz: JosiahAdd itonal notes: induced . late Discharge Information Feeding Method Contraceptive Method Maternal HG B and HCT Levels Ob Episode Information Episode Created Date Number of Fetuses Patient Bloodtype Patient rh Status Prepregnancy Weight lbs Domestic Partner Domestic Partner Phone Father Name Bead Builder Status 06/28/20 21 1 CLOSED Fetus Data First Name Last Name Admitted to NICU Weight (g) Sex Living Outcome Pediatric Complications Fetus ID Race Codes Race Delivery Type 3260.19 25 M , Spontane ous [id number] Ry Calculation Initial Ry Date Initial Exam Date Initial Exam Provider Initial Ultrasound Date Last Menstrual Period Date Ultra Sound Weeks Gestation 0 Eighteen To Twenty Week Ry Update Ultra Sound Date Fundal Height At Umbil Quickening Date Ultra Sound Latest Weeks Gestation Final Ry Confirmed By Final Ry Confirmed Date Final Ry Date Ultra Sound Latest Days Gestation 0 0 Menstrual History Last Menstrual Date Menses Monthly On Bcp Conception Prior Menses Frequency Hcg Plus Date Menarche Onset Age Delivery Information Delivery Date Delivery Type Labor Anesthesia Weeks Gestation Incision Type Labor Labor Length Hrs Delivered By Post Complications Tubal Sterilization Discharge Date Comments 1 Delivery type:SAB (<20w)EGA : 3 monthsDel tani site: [facility] weight: 3258gName : DominicAd ditonal notes: lost twins at twelve weeks, Discharge Information Feeding Method Contraceptive Method Maternal HG B and HCT Levels Ob Episode Information Episode Created Date Number of Fetuses Patient Bloodtype Patient rh Status Prepregnancy Weight lbs Domestic Partner Domestic Partner Phone Father Name Bead Builder Status 06/28/20 21 1 CLOSED Fetus Data First Name Last Name Admitted to NICU Weight (g) Sex Living Outcome Pediatric Complications Fetus ID Race Codes Race Delivery Type 3288.54 2 M , Spontane ous [id number] Ry Calculation Initial Ry Date Initial Exam Date Initial Exam Provider Initial Ultrasound Date Last Menstrual Period Date Ultra Sound Weeks Gestation 0 Eighteen To Twenty Week Ry Update Ultra Sound Date Fundal Height At Umbil Quickening Date Ultra Sound Latest Weeks Gestation Final Ry Confirmed By Final Ry Confirmed Date Final Ry Date Ultra Sound Latest Days Gestation 0 0 Menstrual History Last Menstrual Date Menses Monthly On Bcp Conception Prior Menses Frequency Hcg Plus Date Menarche Onset Age Delivery Information Delivery Date Delivery Type Labor Anesthesia Weeks Gestation Incision Type Labor Labor Length Hrs Delivered By Post Complications Tubal Sterilization Discharge Date Comments 2 Delivery type:SAB (<20w)EGA : @ 3monthDel tani site: [facility] rth weight: 3286gName : DominicAd ditonal notes: lost twins at twelve weeks, Discharge Information Feeding Method Contraceptive Method Maternal HG B and HCT Levels Ob Episode Information Episode Created Date Number of Fetuses Patient Bloodtype Patient rh Status Prepregnancy Weight lbs Domestic Partner Domestic Partner Phone Father Name Bead Builder Status 06/28/20 21 1 CLOSED Fetus Data First Name Last Name Admitted to NICU Weight (g) Sex Living Outcome Pediatric Complications Fetus ID Race Codes Race Delivery Type 3572.03 7 M Full Term [id number] Vaginal Delivery Ry Calculation Initial Ry Date Initial Exam Date Initial Exam Provider Initial Ultrasound Date Last Menstrual Period Date Ultra Sound Weeks Gestation 0 Eighteen To Twenty Week Ry Update Ultra Sound Date Fundal Height At Umbil Quickening Date Ultra Sound Latest Weeks Gestation Final Ry Confirmed By Final Ry Confirmed Date Final Ry Date Ultra Sound Latest Days Gestation 0 0 Menstrual History Last Menstrual Date Menses Monthly On Bcp Conception Prior Menses Frequency Hcg Plus Date Menarche Onset Age Delivery Information Delivery Date Delivery Type Labor Anesthesia Weeks Gestation Incision Type Labor Labor Length Hrs Delivered By Post Complications Tubal Sterilization Discharge Date Comments 4 Regional-Ep idural EGA: Mac fonseca termDeliv sander site: [facility] notes: prolonged [id number] >sent home, came back in spont labor. Discharge Information Feeding Method Contraceptive Method Maternal HG B and HCT Levels
--- OUTSIDE RECORDS SUMMARY | 2025-08-17 21:37 | XMS_ITS | Clinical Summary ---
Author Organization [facility] Address [address] [place] [id number] Phone Care Team Providers Care Banquet Food Server Name Role Phone [place], Laura Craig MD Primary Care Provider + [...] adenoma 06/13/2021 Overview (06/15/2021): MRI 04/2021 at [facility] Did not mention any pituitary abnormalities Assessment [...] Last MRI was normal in 2010 at [facility]. Did not have problem to conceive. Denies ring size change. She reports she had a recent MRI for headaches at [facility] - we will obtain results Check prolactin [...] LAB BLOOD BKR YADIRA GUADARRAMA Final Result [address] [id number], [facility] from Last 3 Months or Most Recently Relevant to Health Maintenance Insurance [employer] [id number] [employer] MGP [employer] Care Teams Banquet Food Server Relationship Specialty Start Date End Date [place], Laura Craig MD [address] [place] [id number] PCP - General Family Medicine 01/23/21 Additional Source Comments The information contained in this document represents components of the legal health record. It is not the complete legal health record.[facility]
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
--- OUTSIDE RECORDS SUMMARY | 2025-08-17 21:37 | XMS_ITS | Clinical Summary ---
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
== END 2025-08-17 16:01 | disposition home or self-care (01) ==
LOC: HO.HPODS 15:14
PROVIDERS: PCP Family Medicine; Visit Provider Student in an Organized Health Care Education/Training Program
DX: L97.512 Non-pressure chronic ulcer of other part of right foot with fat layer exposed (principal); L03.031 Cellulitis of right toe; M60.271 Foreign body granuloma of soft tissue, not elsewhere classified, right ankle and foot; L03.115 Cellulitis of right lower limb
CPT/HCPCS: 99213

== ENCOUNTER → 2025-08-17 15:14 | Outpatient (BNVA) | payer MEDICAID, SELFPAY | PROVIDERS: PCP Family Medicine; Visit Provider Student in an Organized Health Care Education/Training Program | DX: L97.512 Non-pressure chronic ulcer of other part of right foot with fat layer exposed (principal); L03.031 Cellulitis of right toe; M60.271 Foreign body granuloma of soft tissue, not elsewhere classified, right ankle and foot; L03.115 Cellulitis of right lower limb | CPT/HCPCS: 99212 ==

== ENCOUNTER 2025-08-24 14:52 | Outpatient (AMB) | payer MEDICAID, SELFPAY ==
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
[2025-08-24 15:04] VITALS: BMI 34.7
--- OUTSIDE RECORDS SUMMARY | 2025-08-24 19:12 | XMS_ITS | Clinical Summary ---
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
--- OUTSIDE RECORDS SUMMARY | 2025-08-24 19:13 | XMS_ITS | Clinical Summary ---
Author Organization [facility] Address [address] [address] Phone Care Team Providers Care Cable Installer Repairer Helper Name Role Phone [place], Laura Craig MD Primary Care Provider + [...] adenoma 06/13/2021 Overview (06/15/2021): MRI 04/2021 at [facility] Did not mention any pituitary abnormalities [...] Last MRI was normal in 2010 at [facility]. Did not have problem to conceive. Denies ring size change. She reports she had a recent MRI for headaches at [facility] - we will obtain results Check [...] LAB BLOOD BKR YADIRA GUADARRAMA Final Result [address] [address], [facility] from Last 3 Months or Most Recently Relevant to Health Maintenance Insurance [employer] [place] [id number] [employer] M[employer] FAM[employer]CO MGP [employer] FAMILY [employer]CO Care Teams Cable Installer Repairer Helper Relationship Specialty Start Date End Date [place], Laura Craig MD [address] [place] [id number] PCP - General Family Medicine 01/23/21 Additional Source Comments The information contained in this document represents components of the legal health record. It is not the complete legal health record.[facility]
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
--- OUTSIDE RECORDS SUMMARY | 2025-08-24 19:13 | XMS_ITS | Data Portability ---
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 [...] Vitamin tablet 1 tab QD 04/11 completed [id number] Not Available Not Available Not Available meloxicam [...] tab weekly x 2 months 12/16 completed 883270 Not Available Not Available Not Available etonogest [...] Use for ambulati on M54.3 08/14 completed 482559 Not Available Not Available Not Available Saline [...] before meals for symptom relief 08/23 completed [id number] Not Available Not Available Not Available topiramat e 50 mg tablet TAKE 1 TABLET BY MOUTH EVERY DAY 10/06 completed Not Available Not Available Not Available glycerin (adult) rectal supposito ry Insert 1 supposit ory rectally twice daily as needed 12/03 completed [id number] Not Available Not Available Not Available ferrous [...] tab daily while breast feeding 12/03 completed [id number] Not Available Not Available Not Available Aerochamb [...] Updated DateTime 5 160.66 cm 34.3 kg/m2 42615.2 1 g 103 /min 97.6 [degF] 106/60 mm[Hg] Jane Gandhi MA [address] [place] [address], [address], [facility] 5 12:20:19 Date Recorded Body weight Heart rate Body temperature Oxygen saturation Body mass index (BMI) Body height Systolic And Diastolic Provider Name and Address Organization Details Last Updated DateTime 4 525812. 36 g 79 /min 97.9 [degF] 97 % 43.7 kg/m2 160.66 cm 113/79 mm[Hg] Felisha Concepcion MA [address] [place] [address], [address], [facility] 4 10:25:47 Social History Question Answer Notes LastModified by Organizat ion Details LastModified Time Tobacco Smoking Status Never Smoker Cammie Villela MA [address] [place] [address], [address] 05/31/2021 17:02:27 Is Your Home Air Conditioned? Yes [email or web address] Information not available 05/31/2021 Do You Wear A Helmet When Biking? No [email or web address] Information not available 05/31/2021 What Is Your Level Of Caffeine Consumption? None [email or web address] Information not available 05/31/2021 What Type Of Diet Are You Following? REGULAR [email or web address] Information not available 05/31/2021 Which Illicit Or Recreational Drugs Have You Used? Marijuana Information not available 06/29/2021 What Is The Highest Grade Or Level Of School You Have Completed Or The Highest Degree You Have Received? CG38796-3 [email or web address] Information not available 05/31/2021 Are There Any Guns Present In Your Home? No [email or web address] Information not available 05/31/2021 Where Do You Live? Apartment [email or web address] Information not available 05/31/2021 Domestic Violence Current Informa tion not available 06/29/2021 Who Do You Have Sex With? Male Information not available 06/29/2021 How Long Have You Lived There? 3 Years [email or web address] Information not available 05/31/2021 What Was The Date Of Your Most Recent Tobacco Screening? 04/21/2021 [email or web address] Information not available 04/07/2022 How Many Children Do You Have? 4 [email or web address] Information not available 05/31/2021 Do You Have Any Pets? No [email or web address] Information not available 05/31/2021 What Is Your Relationship Status? Single [email or web address] Information not available 05/31/2021 Do You Use Your Seat Belt Or Car Seat Routinely? Yes [email or web address] Information not available 05/31/2021 Are You Sexually Active? No [email or web address] Information not available 05/31/2021 Are There Any Smokers In Your House? No [email or web address] Information not available 05/31/2021 How Much Tobacco Do You Smoke? 0.25 PPD Information not available 06/29/2021 Do You Participate In Social Media? Yes [email or web address] Information not available 05/31/2021 Sex: Female Functional Status Question Answer Note LastModified by Organizat ion Details LastModified Time Do you use any illicit or recreational drugs? No [email or web address] Information not available 05/31/2021 What is your level of alcohol consumption? Occasional [email or web address] Information not available 05/31/2021 Are you currently employed? No [email or web address] Information not available 05/31/2021 What is your occupation? [employer] Information not available 06/29/2021 What is your exercise level? Moderate [email or web address] Information not available 05/31/2021 Mental Status Question Answer Note LastModified by Organization D etails LastModified Time Do you feel stressed (tense, restless, nervous, or anxious, or unable to sleep at night)? [id number] [email or web address] Information not available 05/31/2021 Family History Relationship [...] unspecified formulation 1 completed Laura Mccarty MD [address] [place] [address], [address], [facility] 08/07/2021 09:03:18 Tdap 1 completed Not Available [facility] 05/06/2021 01:54:54 influenza, unspecified formulation 2 completed Laura Mccarty MD [address] [place] [address], [address], [facility] 08/07/2021 09:03:18 Tdap 4 completed Not Available [facility] 05/06/2021 01:54:54 DTaP 2 completed Laura Mccarty MD [address] [place] [address], [address], [facility] 08/07/2021 09:03:17 OPV, trivalent 7 completed Laura Mccarty MD [address] [place] [address], [address], [facility] 08/07/2021 09:03:17 Influenza, split virus, trivalent, preservative 4 completed Laura Mccarty MD [address] [place] [address], [address], [facility] 08/07/2021 09:03:17 meningococcal MCV4P 8 completed Laura Mccarty MD [address] [place] [address], [address], [facility] 08/07/2021 09:03:17 Influenza, split virus, trivalent, preservative 1 completed Laura Mccarty MD [address] [place] [address], [address], [facility] 08/07/2021 09:03:17 DTaP 7 completed Laura Mccarty MD [address] [place] [address], [address], [facility] 08/07/2021 09:03:17 DTaP 7 venkata Mccarty MD [address] [place] [address], [address], [facility] 08/07/2021 09:03:17 HPV, quadrivalent 8 venkata Mccarty MD [address] [place] [address], [address], [facility] 08/07/2021 09:03:18 Hep B, adolescent or pediatric 0 venkata Mccarty MD [address] [place] [address], [address], [facility] 08/07/2021 09:03:18 Influenza, split virus, trivalent, preservative 5 venkata Mccarty MD [address] [place] [address], [address], [facility] 08/07/2021 09:03:18 Td (adult), 2 Lf tetanus toxoid, preservative free, adsorbed 9 venkata Mccarty MD [address] [place] [address], [address], [facility] 08/07/2021 09:03:18 Influenza, split virus, trivalent, preservative 8 completed Laura Mccarty MD [address] [place] [address], [address], [facility] 08/07/2021 09:03:18 DTaP 0 completed Laura Mccarty MD [address] [place] [address], [address], [facility] 08/07/2021 09:03:18 HPV, quadrivalent 7 completed Laura Mccarty MD [address] [place], [place] [address] [place], [address], [facility] 08/07/2021 09:03:18 Hep B, adolescent or pediatric 9 completed Laura Mccarty MD [address] [place], [place] [address] [place], [address], [facility] 08/07/2021 09:03:18 Influenza, split virus, trivalent, preservative 3 completed Laura Mccarty MD [address] [place] [address], [address], [facility] 08/07/2021 09:03:18 MMR 5 venkata Mccarty MD [address] [place] [address], [address], [facility] 08/07/2021 09:03:18 OPV, trivalent 0 completed Laura Mccarty MD [address] [place], [place] [address] [place], [address], [facility] 08/07/2021 09:03:18 OPV, trivalent 7 venkata Mccarty MD [address] [place], [place] [address], [address], [facility] 08/07/2021 09:03:18 OPV, trivalent 2 completed Laura Mccarty MD [address] [place], [place] [address], [address], [facility] 08/07/2021 09:03:18 DTaP 7 completed Laura Mccarty MD [address] [place] [address], [address], [facility] 08/07/2021 09:03:18 Influenza, split virus, trivalent, preservative 7 completed Laura Mccarty MD [address] [place], [place] [address] [place], [address], [facility] 08/07/2021 09:03:18 MMR 0 completed Laura Mccarty MD [address] [place] [address], [address], [facility] 08/07/2021 09:03:18 Tdap 8 completed Laura Mccarty MD [address] [place] [address], [address], [facility] 08/07/2021 09:03:18 HPV, quadrivalent 7 completed Laura Mccarty MD [address] [place] [address], [address], [facility] 08/07/2021 09:03:18 varicella 8 venkata Mccarty MD [address] [place] [address], [address], [facility] 08/07/2021 09:03:18 Hep B, adolescent or pediatric 9 venkata Mccarty MD [address] [place], [place] [address], [address], [facility] 08/07/2021 09:03:18 Hib (HbOC) 9 venkata Mccarty [place], [address], [facility] 08/07/2021 09:03:18 Past Encounters Encounter ID Performer Location Encounter Start Date Encounter Closed Date Diagnosis/Indication Diagnosis SNOMED-CT Code Diagnosis ICD10 Code Diagnosis IMO Codes Diagnosis Note [id number] Laura Mccarty MD [address] [address] 05/31/2021 16:49:06 05/31/2021 18:22:40 Benign intracranial hypertension 64243955 G93.2 MRI and ophtho findings consistent with [...] current housing situation is affecting her health. [id number] Laura Mccarty MD [facility] [address] [place] [address] 07/04/2021 09:30:41 07/04/2021 11:05:36 Anxiety disorder 018402607 F41.9 Tolerating buspar, but hasn't noticed much of a difference yet, but has been under a lot of stress with her mother. Has not yet found time to call for therapists yet. Will increase buspar to 15mg daily. RTC 2m. Benign int racranial hypertension 32643393 G93.2 Headaches are improved with acetazolam mitch. Neuro referral not yet processed. WIll send a message to referrals to follow-up. Tobacco de pendence syndrome 00381449 F17.200 Down to 3 a day. Sometimes will go on a vigorous walk or jumprope. Very motivated to quit and set a quit date today of September 09! Sciatica 02622435 M54.30 Completed PT and improved. Trying to keep up with HEP. Uses meloxicam oncec a day prn. Pain of breast 98225018 N64.4 Lef tbreast pain, no masses. Will refer to mammo with US prn. [id number] Francheska Dowling NP [facility] [address] [place] [address] 07/24/2021 10:19:21 07/24/2021 11:41:14 Exposure to SARS-CoV-2 469180047 Z20.822 asymptomat icreviewed cdc guidelines quarantine x 14 days, social distancing call if SOB, high fevers etc [id number] Laura Mccarty MD [address] [address] 08/07/2021 08:54:20 08/07/2021 12:03:47 Benign intracranial hypertension 25120263 G93.2 Has neuro appt in november. Will check BMP now for bicarb levels. Cough 03630447 R05.9 May be related to quitting smoking, but unvaccinat ed with a covid exposure. Rapid covid negative and collected PCR. Lungs clear on exam. Anxiety disorder F41.9 Not much of a difference yet. WIll be starting family therapy at [facility] soon. Therpeutic listening done today [id number] Laura Mccarty MD [address] [address] 10/06/2021 07:54:59 10/06/2021 10:47:53 Premenstrual tension syndrome 75762500 N94.3 Would like to see if there is anything better for her PMDD. Already on the lower estrogen dose. Discussed that we could try drosperino ne alone which si approved for PMDD to see if the estrogen component makes a difference . Patient would liek to try this. Headache 58454545 R51.9 Patient has actually stopped acetazolam mitch and HAs are improving so likely not truly pseudotumo r. Patient would liek to continue OCPs for PMDD symptoms (see above), which I think is reasonable given the low concern for pseudotumo r that was never really truyl consistent . Anxiety disorder F41.9 Not much of a difference yet. WIll be starting family therapy at [facility] soon. Therapeuti c listening done today [id number] Renata Coleman [facility] [address] [place] [address] 10/23/2021 13:52:09 10/23/2021 17:27:54 [id number] Laura Mccarty MD [address] [address] 11/06/2021 08:05:55 11/06/2021 11:28:04 Anxiety disorder 102158259 F41.9 Will increase Buspar to 2 tabs PO BID. Writing letter to show how her current housing situation is affecting her mental health. 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 See above. [id number] Yasmin Dwyer, LESA [address] [address] 01/10/2022 09:00:55 01/10/2022 10:44:21 Pain of left shoulder joint [id number] 5520051 M25.512 Pt here today for left lateral [...] warmth, reduced ROM on abduction, +speed test [id number] Laura Mccarty MD [address] [address] 07/02/2022 10:55:24 07/02/2022 12:12:05 Anxiety disorder 920721188 F41.9 Feels like the buspar at current dose is working well. Trying to manage stress and practice the coping skills that she has learned. Hypothyroidism 08121658 E03.9 Due for TSH Depressive disorder 3548 9007 F32.9 Z81.8 See anxiety and ADHD below. Attention deficit hyperactivity disorder, predominantly inattentive type 75246362 F90.0 Feeling very good on bupropion and feels like this is the most stable she has been on a ynes regimen in a while. SHe is frustrated with difficulty with weight loss though and is open to trying a higher dose of bupropion. Homeless 20984245 Z59.00 Living with father and stepmom with her 3 sons, but family is selling the house this summer and she does not have back up housing. She has been ont he wiaiting list for DTA housing for 4-5 years and the section 8 wait list for 9 years. Letter written to help case today. [id number] Tiffanie Amanda NP [address] [place] [address] 08/29/2022 15:24:15 08/29/2022 16:53:16 Upper respiratory infection 49538143 J06.9 Most likely viral in origin:Exp lained nature of condition and why not need for antibiotic - Symptoms may last up to two weeks- Supportive care including rest, plenty fluids, frequent hand washing,-n isaac saline, vaporizati on, humidifier - Return for high fevers, severe vomiting or if not improving [id number] Sue Coleman, MAUDE [address] [place] [address] 10/24/2022 08:04:22 10/24/2022 10:41:19 Contraception care management 371624344 Z30.9 - Hx of PMDD- Reports prior [...] after period has finished.- RX sent Headache 05670188 R51.9 - x few years- Wears glasses and seen Opthamolog y in June 2022. wears glasses pressure was optic nerve which had subsided does not think it is contributi ng to headaches- Denies n/v, light disturbanc es, no hx of HTN. Last BP in clinic WNL.- Neurology referral placed [id number] Laura Mccarty MD [address] [place] [address] 12/27/2022 10:56:57 12/27/2022 11:54:50 Hypothyroidism 36636387 E03.9 Very poorly controlled with TSH 41 recently. Has only been out of meds for a couple of weeks, so suspect that she was uncontroll ed prior to that. Having symptoms currently. Will restart levoT at 100mcg as per her last dose. RTC in 6 weeks with rpt TSH. Abdominal pain 96593661 R10.9 Suspect an element of gastritis, but also concern for hernia on exam. Will do 1 month of omeprazole (already on famotidine with no relief). CHecking US for hernia. Depressive disorder 3548 9007 F32.9 Z81.8 Situationa l, but feels like meds are helping. Therapeuti c listening performed and gave support. SDOH screen positive for housing insecurity , but aptient is already establishe d with several community resources. [id number] Laura Mccarty MD [address] [place] [address] 02/07/2023 09:11:54 02/07/2023 10:05:53 Hypothyroidism 14122315 E03.9 Very poorly controlled with TSH 41 12/25/22.Re started levoT at 100mcg daily on 12/27Rpt TSH drawn today Abdominal pain 20239271 R10.9 Suspect an element of gastritis, but also concern for hernia on exam. Recent ED visit for rectal bleeding (see hemorrhoid below) and CT abd showed ileitis and was given flagyl. Will also check h. pylori. If all these are negative, consider referral to GI for possible scope and biopsies to rule out IBD. Vaginitis 27466653 N76.0 Rx for fluconazol e empiricall y for symptoms since being on antibiotic s. Headache 01515989 R51.9 Taking magnesium, will switch to glycinate formulatio n. Hemorrhoids 95192657 K64 .9 Bleeding most likely from known hemorrhoid [id number] Laura Mccarty MD [facility] [address] [place] [address] 07/26/2023 11:22:30 07/26/2023 12:47:32 Acute stress disorder 40929578 F43.0 Has been under a significan t level of stress the past few months with housing insecurity , having to move her 3 kids to [place], [place] and then the sudden of her [...] keep in a safe place. Panic attack 314396179 F 41.0 See above Abdominal pain 46562553 R10.9 Acutely worsened with the stress reaction. Discussed relationsh ip between GI symptoms and anxiety symptoms. Refilling omeprazole . [id number] Laura Mccarty MD [facility] [address] [place] [address] 09/30/2023 07:42:06 09/30/2023 14:48:28 Acute stress disorder 98456962 F43.0 Has been under a significan t level of stress the past few months with housing insecurity , having to move her 3 kids to [place], [place] and then the sudden of her [...] groups in her area. Low back pain 550249155 M54.50 History of intermitte nt lumbar pain, s/p PT several years ago, but pain is now occurring more frequently and worried about it interferin g as she re-enters the work-force . WIll place referral to Pain Management local to her and rx short course of muscle relaxant. Hypothyroidism 42698387 E03.9 Very poorly controlled with TSH 41 12/25/22.Re started levoT at 100mcg daily on 4/20Rpt TSH 15.9 on 76-> increase to 125mcg dailyBut most recent TSH 44 in August Ordering TSH to be done at [facility] Menorrhagia 289424995 N9 2.0 Had been taking OCPs for a few months and periods were normal, but once she stopped periods were very heavy again. Hesitant for OCPs for weight gain concerns, not interested in IUD. Will try Nuvaring with continuous 3 month dosing. Hernia of anterior abdominal wall 470990911 K43.9 [id number] Laura Mccarty MD [address] [place] [address] 11/25/2023 07:53:58 11/25/2023 14:13:45 Low back pain 192637363 M54.50 History of intermitte nt lumbar pain, s/p PT several years ago, but pain is now occurring more frequently and worried about it interferin g as she re-enters the work-force . Referral placed to Pain Management local to her in September, not processed yet. Messaged referrals. Gave patient direct # to specialist s office to try to schedule. Hypothyroidism 19251976 E03.9 Very poorly controlled with TSH 41 12/25/22.Re started levoT at 100mcg daily on 4/20Rpt TSH 15.9 on 7-> increase to 125mcg dailyBut most recent TSH 44 in August Reminded patient to get the labs done [facility] Menorrhagia 856729942 N9 2.0 Had been taking OCPs for [...] have resolved. Hernia of anterior abdominal wall 705991560 K43.9 Referred to gen surg in September, not yet processed. [id number] Laura Mccarty MD [address] [place] [address] 02/17/2024 09:31:16 02/17/2024 14:33:09 Low back pain 620486143 M54.50 History of intermitte nt lumbar pain, s/p PT several years ago, but pain is now occurring more frequently . Has been seen by pain management at [facility] and planning for an injection/ procedure of some sort. Switched to methocarba mol and meloxicam (d/c cyclobenza maldonado) Hypothyroidism 50335358 E03.9 Very poorly controlled with TSH 41 12/25/22.Re started levoT at 100mcg daily on 12/27Rpt TSH 15.9 on 03/14-> increase to 125mcg dailyBut most recent TSH 44 in August and 41 in December, so increased to 150mcg dailyWill get updated TSH Menorrhagia [id number] N9 2.0 Doing well with Nuvaring. Periods are now only 3 months, but last period was 10 days and still heavy. WIll continue Nuvaring. Hernia of anterior abdominal wall [id number] K43.9 Saw surgeon, and per patient was told she does not have a hernia, but they are also planning for surgery and she isn't sure why. Will request records. Obesity [id number] E66.8 [facility] BMI >40 and has continued to gain weight over the last several years. Would benefit from medical weight loss or surgical, but given that patient is currently in [place], I do not feel like I could fully support her remotely. Will refer to weight management in [place]. [id number] Laura Mccarty MD [facility] [address] [place] [address] 04/16/2024 07:51:44 04/16/2024 13:49:50 Low back pain [id number] M54.50 History of intermitte nt lumbar pain, s/p PT several years ago, but pain is now occurring more frequently . Having a hard time standing for longer than 30 minutes, which is making it hard for her find work or do training programs. Improved with lying flat with legs elevated. Had an attempt at some sort of procedure with the pain clinic at [place], but couldn't tolerate the pain of the [...] would likely qualify for disability . Hypothyroidism 30170601 E03.9 Very poorly controlled with TSH 41 12/25/22.Re started levoT at 100mcg daily on 12/27Rpt TSH 15.9 on 03/14-> increase to 125mcg dailyBut most recent TSH 44 in August and 41 in December, so increased to 150mcg dailyWill get updated TSH, ordered in February, patient aware to go to lab Hernia of anterior abdominal wall [id number] K43.9 s/p hernia repair and feeling better Obesity 635614573 E66.8 Current weight 250 per patient at specialist appointmen t. BMI >40 and has continued to gain weight over the last several years. Has appointmen t with surgeon later this month at [facility]. [id number] Laura Mccarty MD [facility] [address] [place] [address] 08/14/2024 10:16:21 08/14/2024 11:23:15 Adult health examination [id number] Z00.00 39yo F here for CPE. Normal [...] ounces of water daily. Screening for disorder 047677083 Z13.84 [id number] Patient screened today for oral health - see results below. Low back pain 431897212 M54.50 Had an attempt at some sort of procedure with the pain clinic at [place], but couldn't tolerate the pain of the procedure and also had a bad experience with the doctor and does not want to go back. Pain radiates and has improved with gabapentin BID. Hypothyroidism 14295293 E03.9 Very poorly controlled with TSH 41 12/25/22.Re started levoT at 100mcg daily on 12/27Rpt TSH 15.9 on 03/14-> increase to 125mcg dailyBut most recent TSH 44 in August and 41 in December, so increased to 150mcg dailyOverd ue for follow-up TSH Morbid obesity 683211606 E66.01 22400 Reviewed patient's history with weight gain and [...] patient is a good candidate for Zepbound. -Specifica lly counseled on making the following nutritiona l changes: eating unprocesse d, whoel foods, high protein and fiber -encourage d starting an exercise regimen and work towards a goal of 200-300m a week with 2-3 sessions of resistance training -will continue to discuss sleep and stress management at further visits Cancer cer vix screening status [id number] Z12.4 [id number] Venereal d isease screening 073830513 Z11.3 499319 Pt consented Uncomplica ricky mild persistent asthma 241166386 J45.30 Needs refill of symbicort Mild inter mittent asthma 378740330 J45.20 Feels like symbicort does not work as well for her as rescue and requesting refills of ventolin Abdominal pain 69457380 R10.9 Acutely worsened with the stress reaction. Discussed relationsh ip between GI symptoms and anxiety symptoms. Refilling omeprazole . [id number] Laura Mccarty MD [facility] [address] [place] [address] 11/11/2024 07:41:24 11/11/2024 10:25:09 Depressive disorder 15435658 F32.9 Z81.[address] and was started on Concerta. This plus benefits of weight loss has her feeling better than she has in a long time and she actually stopped bupropion! Morbid obesity 637888830 E66.01 67424 39yo F here for bariatric f/u visit.-Cur rent medication regimen: zepbound 7.5-Starti ng weight 248-> current weight 225 = __9% weight loss- 5: 225lb; managing side effects well and very happy with results so far; discussed ensuring adequate protein and will add Miralax for constipati on; encouraged regular exercise; continue to uptitrate dose and RTC prior to PA expiring in February Constipation [id number] K5 9.00 [id number] Laura Mccarty MD [facility] [address] [place] [address] 01/29/2025 12:13:02 01/29/2025 13:17:53 Hypothyroidism 16058412 E03.9 Very poorly controlled with TSH 41 12/25/22.Re started levoT at 100mcg daily on 12/27Rpt TSH 15.9 on 03/14-> increase to 125mcg dailyBut most recent TSH 44 in August and 41 in December, so increased to 150mcg dailyOverd ue for follow-up TSH Morbid obesity 583724381 E66.01 66396 40yo F here for bariatric f/u visit.-Cur [...] results; depression is significan tly improved Goiter 0099522 E04.9 699925 SLight asymmetry to left thyroid, will check US 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 Combo therapy for 6 months didn't really work, but may still be a benefit to continuing tretinoin. Advised vigilance around sun exposure. [id number] Nanette Mullins [facility] [address] [place] [address] 07/02/2025 15:33:55 07/02/2025 16:40:45 [id number] Millie Barkley MD [facility] [address] [facility] [place] [address] 07/21/2025 07:49:43 07/21/2025 14:15:02 Ingrowing toenail [id number] L60.0 1001 subacute paronychia x2w, no drainage [...] Hernandez Member ID Guarantor Name 07/02/2025 1 [facility] (MEDICAID REPLACEMENT) Vicki Barillas [id number] Vicki Barillas 08/23/2025 1 MEDICAID-[facility] (MEDICAID) Vicki Barillas [id number] Vicki Barillas Notes Date Note Type Note [...] ring (continuous use) Laura Mccarty MD [address] [place], [address], [facility] 08/21/2024 14:18:35 5 text/html ROS as noted in the [facility] Bariatric Medicine follow-up visit:-Current medication regimen: Zepbound 7.5-Side effects: nausea and significant appetite suppression for 2 days after dose; constipation Exercise- has been trying to just be more active; has a stationary bike and trying to do 5 minutes a day Weight currently: 225lb Telehealth visit today . Patient informed they can see a clinician in-person as needed. Clinician's location: [facility]. Patient's location: Home. Laura Mccarty MD [address] [place] [address], [phone], [facility] 11/11/2024 10:16:26 5 text/html ROS as noted in the [facility] Bariatric Medicine follow-up visit:-Current medication regimen: zepbound 15-Side effects: nausea and heigthened sense of smell 24hr dietary recall:B- Yogurt drink with proteinL- noneD- turkey sometimes on breadS- goldfish, fruitsBeverages- water Exercise-walking Laura Mccarty MD [address] [place], [address], [facility] 01/29/2025 13:36:11 5 text/html Referral requesttype: [facility] - [facility].[address] [place] [address]. [phone]. jrnovn for referral: ingrown toe nail (right foot) infection+ redness, warm to touchright foot, big toe >2 weeks of this Millie Barkley MD [address] [place], [address], [facility] 07/21/2025 14:10:02 OBGyn Episode Ob Episode Information Episode Created Date Number of Fetuses Patient Bloodtype Patient rh Status Prepregnancy Weight lbs Domestic Partner Domestic Partner Phone Father Name Under Ground Miner Status 06/28/20 21 1 CLOSED Fetus Data First Name Last Name Admitted to NICU Weight (g) Sex Living Outcome Pediatric Complications Fetus ID Race Codes Race Delivery Type 3316.89 15 M Full Term 46266 Vaginal Delivery Ry Calculation Initial Ry Date [...] Tubal Sterilization Discharge Date Comments 3 EGA: Mac l termBirth weight: 3316.89gN chaz: AidenAddi tonal notes: severe anxiety during Discharge Information Feeding Method Contraceptive Method Maternal HG B and HCT Levels Ob Episode Information Episode Created Date Number of Fetuses Patient Bloodtype Patient rh Status Prepregnancy Weight lbs Domestic Partner Domestic Partner Phone Father Name Under Ground Miner Status 06/28/20 21 1 CLOSED Fetus Data First Name Last Name Admitted to NICU Weight (g) Sex Living Outcome Pediatric Complications Fetus ID Race Codes Race Delivery Type 3260.19 25 M Full Term 39680 Vaginal Delivery Ry Calculation Initial Ry Date [...] Domestic Partner Domestic Partner Phone Father Name Under Ground Miner Status 06/28/20 21 1 CLOSED Fetus Data First Name Last Name Admitted to NICU Weight (g) Sex Living Outcome Pediatric Complications Fetus ID Race Codes Race Delivery Type 3260.19 25 M , Spontane ous 56605 Ry Calculation Initial Ry Date Initial Exam [...] type:SAB (<20w)EGA : 3 monthsDel tani site: [facility] rt weight: 3258gName : DominicAd ditonal notes: lost twins at twelve weeks, Discharge Information Feeding Method Contraceptive Method Maternal HG B and HCT Levels Ob Episode Information Episode Created Date Number of Fetuses Patient Bloodtype Patient rh Status Prepregnancy Weight lbs Domestic Partner Domestic Partner Phone Father Name Under Ground Miner Status 06/28/20 21 1 CLOSED Fetus Data First Name Last Name Admitted to NICU Weight (g) Sex Living Outcome Pediatric Complications Fetus ID Race Codes Race Delivery Type 3288.54 2 M , Spontane ous 66698 Ry Calculation Initial Ry Date Initial Exam [...] type:SAB (<20w)EGA : @ 3monthDel tani site: [facility] rth weight: 3286gName : DominicAd ditonal notes: lost twins at twelve weeks, Discharge Information Feeding Method Contraceptive Method Maternal HG B and HCT Levels Ob Episode Information Episode Created Date Number of Fetuses Patient Bloodtype Patient rh Status Prepregnancy Weight lbs Domestic Partner Domestic Partner Phone Father Name Under Ground Miner Status 06/28/20 21 1 CLOSED Fetus Data First Name Last Name Admitted to NICU Weight (g) Sex Living Outcome Pediatric Complications Fetus ID Race Codes Race Delivery Type 3572.03 7 M Full Term 19800 Vaginal Delivery Ry Calculation Initial Ry Date [...] Comments 4 Regional-Ep idural EGA: Mac fonseca termDhaval acnuay site: [facility] notes: prolonged [id number] >sent home, came back in spont labor. Discharge Information Feeding Method Contraceptive Method Maternal HG B and HCT Levels
== END 2025-08-24 15:22 | disposition home or self-care (01) ==
LOC: HO.HPODS 14:52
PROVIDERS: PCP Family Medicine; Visit Provider Student in an Organized Health Care Education/Training Program
DX: L97.512 Non-pressure chronic ulcer of other part of right foot with fat layer exposed (principal); L03.031 Cellulitis of right toe; M60.271 Foreign body granuloma of soft tissue, not elsewhere classified, right ankle and foot
CPT/HCPCS: 99213

== ENCOUNTER → 2025-08-24 14:52 | Outpatient (BNVA) | payer MEDICAID, SELFPAY | PROVIDERS: PCP Family Medicine; Visit Provider Student in an Organized Health Care Education/Training Program | DX: L97.512 Non-pressure chronic ulcer of other part of right foot with fat layer exposed (principal); L03.031 Cellulitis of right toe; M60.271 Foreign body granuloma of soft tissue, not elsewhere classified, right ankle and foot | CPT/HCPCS: 99212 ==